=== PATIENT | female | born 1950 | race Caucasian/White ===

== ENCOUNTER → 2016-11-05 | Outpatient (CLI) | payer OTHER ==
[2016-11-05 09:53] LABS: CREATININE 1.52 mg/dL (0.55-1.02)
== END ==
LOC: RAD 09:02
PROVIDERS: ATTEND Optometrist
DX: H47.10 Unspecified papilledema (principal)
CPT/HCPCS: 36415; 70551; 82565; 84520

== ENCOUNTER → 2017-06-21 | Outpatient (CLI) | payer OTHER ==
--- NOTE | 2017-06-21 10:33 | CT ---
History: Passed out last weekend, syncope 2 days ago Study: CT head without contrast. Sagittal and coronal reformations were provided. Comparison: MR brain dated November 05, 2016 Findings: The ventricles and sulci are normal in size and configuration. There is mild periventricula r white matter low attenuation. There is no intracranial hemorrhage or mass or edema. There is mucosa l thickening in the right maxillary sinus with an air-fluid level. The calvarium is intact. Impression: 1. No acute intracranial disease demonstrated. 2. Right maxillary sinusitis Reported By:
== END | disposition home or self-care (01) | DRG 312 ==
LOC: RAD 10:12
PROVIDERS: ATTEND Internal Medicine
DX: R55 Syncope and collapse (principal); J32.0 Chronic maxillary sinusitis
CPT/HCPCS: 70450

== ENCOUNTER → 2017-07-11 | Outpatient (CLI) | payer OTHER ==
--- NOTE | 2017-07-11 11:33 | VAS ---
HISTORY: Syncope, dizziness Study: Carotid ultrasound Comparison: None Technique: Multiple luke scale and color flow Doppler images of the right and left carotid arterial s ystem were obtained. The vertebral arterial system was evaluated as well. Findings: The peak systolic velocity of the right ICA is 96 cm/sec. The peak systolic velocity of the left ICA is 107 cm/sec. The ICA/CCA ratio on the right is 1.5. The ICA/CCA ratio on the left is 1.2. Bilatera l antegrade vertebral flow was noted. IMPRESSION: 1. No hemodynamically significant stenosis is appreciated. Reported By:
== END ==
LOC: RAD 10:17
PROVIDERS: ATTEND Internal Medicine Cardiovascular Disease
DX: R55 Syncope and collapse (principal)
CPT/HCPCS: 93880

== ENCOUNTER 2018-05-27 08:05 | Inpatient (IN) ==
--- NOTE | 2018-05-27 08:32 | CT ---
HISTORY: Altered mental status Study: CT head without contrast Comparison: 06/21/2017 Technique: Axial noncontrast images with coronal and sagittal reformats. Dose reduction procedures were used with mA/kv adjusted for body size. Findings: The ventricles are normal in size, shape, and position. There is slight decreased attenuation in the periventricular white matter suggestive of small vessel vascular disease perhaps slightly more prominent than on the prior examination. There is no evidence for recent or remote CVA, hemorrhage, mass lesion, or extra-axial fluid collection. There is complete opacification of the right maxillary sinus likely due to sinusitis. There is a left maxillary sinus retention cyst present. IMPRESSION: No acute intracranial abnormality Small vessel vascular disease which appears progressive when compared with the prior examination Complete opacification of the right maxillary sinus likely due to sinusitis Left maxillary sinus retention cyst Reported By:
--- NOTE | 2018-05-27 08:43 | DR.AMS ---
HPI Time Seen Time Seen by Provider: 05/27/18 08:43 PCP Primary Care Physician: DAMASO HPI Comment HPI Comment: AGREE WITH CHIEF COMPLAINT. Complaint Cheif Complaint Doctors Comments: AMS, BLANK STARE THIS AM AROUND 07:00AM WHEN PATIENT WOKE UP. Chief Complaint:: PT'S FAMILT C/O PT IS HAVING SEVERE AMS. PT'S SON STATES LAST NIGHT AT [facility]PPER SHE REPEATEDLY TOLD HIM THE SAME THING LAST NIGHT. WHEN HE WENT TO CHECK ON HER THIS MORNING SHE HAS BEEN ALTERED AND WITH NO ORIENTATION AND DID NOT KNOW WHO HE WAS. PT IS UNABLE TO ANSWER ANY QUESTIONS AND GIVES A BLANK STARE WHEN QUESTIONS ASKED. PT IS UNABLE TO FOLLOW COMMANDS. Reviewed Nurses Notes Reviewed: Yes Source History Provided: Patient, Family Member and EMS Mode of Arrival Mode of Arrival: EMS Timing Onset of Chief Complaint: 05/27/18 Came On: Suddenly Symptoms: Improving Symptom Onset: Unknown Duration Duration: Constant Duration: Hours Quality Quality: Confusion Severity Severity: Moderate Context Recent: None History Of: None Associated Signs and Symptoms Associated Signs and Symptoms: Generalized Weakness PMH PMH Past Medical History: Yes Past Medical History: Arthritis, Diabetes, GERD, Gout and Hypertension Past Medical History Comment: NEUROPATHY Past Surgical History: Yes Surgical History: Joint Replacement and Other Past Surgical History Comment: BILAT KNEE, CATARACTS, RIGHT EAR SURGERY (1 MONTH AGO) Family History History of Family Medical Conditions: No Social History Does any household member use tobacco: No Alcohol Use: None Do you use any recreational Drugs:: No Lives With: Family Lives Where: Home infectious screening In the last 2 months have you had wt loss of >10#?: MASON Have you had fever, night sweats or hemotysis?: MASON Have you traveled outside the country in the last 6 months?: No Isolation: Standard ROS Review of Systems Constitutional: Other (AMS.) ENTM: No Symptoms Reported Respiratoy: No Symptoms Reported Cardiovascular: No Symptoms Reported Gastrointestinal/Abdominal: No Symptoms Reported Genitourinary: No Symptoms Reported Neurological: Speech Problem Musculoskeletal: No Symptoms Reported Integumentary: No Symptoms Reported Hematologic/Lymphatic: No Symptoms Reported Endocrine: No Symptoms Reported Psychiatric: No Symptoms Reported All Other Systems: Reviewed and Negative Unable to Obtain Due To: Altered mental status PE Vitals Vital Signs: Temp Pulse Pulse Pulse Resp BP BP 05/29/18 04:54 16 04/11/19 04:00 98.3 F 73 20 144/64 05/29/18 03:54 16 05/29/18 00:00 99.6 F 71 18 132/63 05/28/18 20:00 98.0 F 63 20 144/64 05/28/18 19:30 82 05/28/18 19:28 18 05/28/18 18:28 18 05/28/18 16:00 98.9 F 77 20 116/56 05/28/18 12:00 100.4 F H 86 18 139/56 05/28/18 10:50 100.9 F H 05/28/18 10:40 20 05/28/18 09:40 20 05/28/18 08:00 101.2 F H 71 18 158/67 05/28/18 06:46 18 05/28/18 05:46 17 05/28/18 04:00 98.6 F 63 20 139/63 05/28/18 00:00 99.6 F 76 20 114/54 05/27/18 20:00 97.7 F 72 20 143/65 05/27/18 16:00 98.6 F 78 18 124/60 05/27/18 13:18 16 05/27/18 13:00 98.4 F 78 16 146/66 05/27/18 12:50 83 14 124/55 05/27/18 12:48 16 05/27/18 11:32 84 16 156/66 05/27/18 11:00 89 18 191/79 05/27/18 10:00 90 19 187/77 05/27/18 09:54 86 22 213/85 05/27/18 09:00 79 22 175/73 05/27/18 08:34 85 20 184/76 05/27/18 08:06 86 18 184/79 Pulse Ox 05/29/18 04:54 05/29/18 04:00 94 L 05/29/18 03:54 05/29/18 00:00 94 L 05/28/18 20:00 96 05/28/18 19:30 96 05/28/18 19:28 05/28/18 18:28 05/28/18 16:00 96 05/28/18 12:00 98 05/28/18 10:50 05/28/18 10:40 05/28/18 09:40 05/28/18 08:00 97 05/28/18 06:46 05/28/18 05:46 05/28/18 04:00 98 05/28/18 00:00 92 L 05/27/18 20:00 98 05/27/18 16:00 95 05/27/18 13:18 05/27/18 13:00 96 05/27/18 12:50 98 05/27/18 12:48 05/27/18 11:32 100 05/27/18 11:00 100 05/27/18 10:00 100 05/27/18 09:54 97 05/27/18 09:00 100 05/27/18 08:34 100 05/27/18 08:06 97 General Limitations: Altered Mental Status General Appearance: Alert and In No Apparent Distress Head Head Exam: Normal Inspection Head Exam Physical: Other (NONE REPORTED.) Eyes Eye exam: Normal Appearance Pupils: Regular, Round: Bilateral and Reactive: Bilateral ENT ENT Exam: Normal External Ear Exam External Ear Exam: Normal External Inspection TM/Canal Exam: Bilateral: Normal Nose Exam: Normal Nose Exam Mouth Exam: Normal Inspection Throat Exam: Normal Inspection Neck Neck Exam: Normal Inspection, Full ROM and Trachea Midline; negative Tenderness, Meningismus and Lymphadenopathy Chest Chest Inspection: Normal Inspection and Symmetric Chest Wall Rise Respiratory Respiratory Exam: Normal Lung Sounds Bilat Respiratory Exam: Bilateral: Clear to Auscultation Cardiovascular Cardiovascular Exam: Regular Rate and Normal Rhythm Abdominal Exam Abdominal Exam: Normal Inspection Extremities Extremities Exam: Normal Inspection Back Back Exam: Normal Inspection Neurological Neurological Exam: Alert, CN II-XII Intact and Reflexes Normal Patient Oriented To: Person and Place Speech: Other (SPEECH SLOW.) Cranial Nerve Exam: EOM Function (II, III, IV, ): Normal, Gag reflex (XI): Normal and Tongue Deviation: Normal Motor Strength - LUE: 5/5 Motor Strength - RUE: 5/5 Motor Strength - LLE: 5/5 Motor Strength - RLE: 5/5 Upper Motor Neuron Exam: Babinski Sign: Normal DTR: brachioradialis (L): 2+ and brachioradialis (R): 2+ Psychological Psychiatric Exam: Anxious Skin Skin Exam: Intact MDM Additional Information Obtained Additional Information Obtained From: Family Differential Diagnosis Metabolic: Hypercalcemia, Hypernatremia, Hypoglycemia and Hyponatremia Structural: CVA and Mass Lesion Infectious: Sepsis and UTI COURSE Treatment Treatment: PATIENT SPONTANOUSLY BECAME ORIENTED WHILE IN ED. Consultation Consultation Comments: DR. GONZÁLES WILL ADMIT PATIENT. Education/Counseling Education/Counseling: Patient and Family Educated On: Diagnosis ROR Labs Reviewed Laboratory Results Reviewed?: Yes Result Diagrams: 05/29/18 05:36 05/29/18 05:36 Laboratory: WBC 7.6 X10^3/uL (3.6-10.0) 05/29/18 05:36 RBC 2.89 X10^6/uL (3.5-5.4) L 05/29/18 05:36 Hgb 9.2 g/dL (12.0-16.0) L 05/29/18 05:36 Hct 27.0 % (36.0-47.0) L 05/29/18 05:36 MCV 93.2 fL (80.0-100.0) 05/29/18 05:36 MCH 31.8 pg (27.0-34.0) 05/29/18 05:36 MCHC 34.2 g/dL (33.0-35.0) 05/29/18 05:36 RDW 15.7 % (11.6-16.5) 05/29/18 05:36 Plt Count 106 X10^3/uL (150.0-450.0) L 05/29/18 05:36 MPV 8.9 fL (7.4-11.0) 05/29/18 05:36 Neut % (Auto) 53.8 % (42.0-75.0) 05/29/18 05:36 Lymph % (Auto) 34.9 % (21.0-51.0) 05/29/18 05:36 [place] % (Auto) 7.3 % (0.0-13.0) 05/29/18 05:36 Eos % (Auto) 3.1 % (0.9-2.9) H 05/29/18 05:36 Baso % (Auto) 0.9 % (0.2-1.0) 05/29/18 05:36 Neut # (Auto) 4.1 x10^3/uL (2.2-4.8) 05/29/18 05:36 Lymph # (Auto) 2.7 X10^3/uL (1.3-2.9) 05/29/18 05:36 [place] # (Auto) 0.6 x10^3/uL (0.3-0.8) 05/29/18 05:36 Eos # (Auto) 0.2 x10^3/uL (0.0-0.2) 05/29/18 05:36 Baso # (Auto) 0.1 X10^3/uL (0.0-0.1) 05/29/18 05:36 Absolute Nucleated RBC 0.0 /100WBC 05/29/18 05:36 ESR 68 MM/HOUR (0-20) H 05/28/18 13:00 INR Target Range - 05/27/18 08:35 INR 1.06 (0.8-1.3) 05/27/18 08:35 APTT 31.4 SECONDS (22.9-36.5) 05/27/18 08:35 PTT Comment - 05/27/18 08:35 Sodium 137 mmol/L (136-145) 05/29/18 05:36 Corrected Sodium TNP 05/29/18 05:36 Potassium 4.1 mmol/L (3.5-5.1) 05/29/18 05:36 Chloride 105 mmol/L (98-107) 05/29/18 05:36 Carbon Dioxide 24.5 mmol/L (21-32) 05/29/18 05:36 BUN 32 mg/dL (7-18) H 05/29/18 05:36 Creatinine 2.10 mg/dL (0.55-1.02) H 05/29/18 05:36 Est GFR (MDRD) Af Amer 30 (>60) L 05/29/18 05:36 Est GFR (MDRD) Non-Af 25 (>60) L 05/29/18 05:36 Glucose 72 mg/dL (65-99) 05/29/18 05:36 POC Glucose (mg/dL) 109 mg/dL (65-99) H 05/29/18 06:29 Lactic Acid 1.4 mmol/L (0.4-2.0) 05/27/18 08:35 Calcium 8.1 mg/dL (8.5-10.1) L 05/29/18 05:36 Corrected Calcium 9.4 mg/dL (8.5-10.1) 05/29/18 05:36 Total Bilirubin 0.20 mg/dL (0.2-1.0) 05/29/18 05:36 AST 28 Units/L (15-37) 05/29/18 05:36 ALT 19 Units/L (12-78) 05/29/18 05:36 Alkaline Phosphatase 79 Units/L (46-116) 05/29/18 05:36 Ammonia 26 umol/L (11-32) 05/28/18 09:47 Creatine Kinase 273 Units/L (26-192) H 05/28/18 00:45 CK-MB (CK-2) 7.9 ng/mL (0-4.0) H* 05/28/18 00:45 CK/CKMB % Calc 2.9 % (<4) 05/28/18 00:45 Troponin I 0.03 ng/mL (0-1.5) 05/28/18 00:45 C-Reactive Protein 9.00 mg/L (0-3.0) H 05/28/18 13:00 Total Protein 5.9 g/dL (6.4-8.2) L 05/29/18 05:36 Albumin 2.4 g/dL (3.4-5.0) L 05/29/18 05:36 Globulin 3.5 g/dL (2.5-4.5) 05/29/18 05:36 Albumin/Globulin Ratio 0.7 Ratio (1.1-2.1) L 05/29/18 05:36 Triglycerides 164 mg/dL (0-150) H 05/28/18 05:29 Cholesterol 92 mg/dL (0-200) 05/28/18 05:29 LDL Cholesterol, Calc 32 mg/dL (0-100) 05/28/18 05:29 HDL Cholesterol 27 mg/dL (40-60) L 05/28/18 05:29 Cholesterol/HDL Ratio 3.4 (0.0-5.0) 05/28/18 05:29 Specimen Type Catherized urine 05/27/18 10:56 Urine Color Yellow (YELLOW) 05/27/18 10:56 Urine Appearance Slightly hazy (CLEAR) 05/27/18 10:56 Urine pH 6.0 (5.0 - 8.0) 05/27/18 10:56 Ur Specific [place] 1.020 (1.000-1.030) 05/27/18 10:56 Urine Protein 4+ (NEGATIVE) 05/27/18 10:56 Urine Glucose (UA) 2+ (NEGATIVE) 05/27/18 10:56 Urine Ketones 1+ (NEGATIVE) 05/27/18 10:56 Urine Occult Blood 4+ (NEGATIVE) 05/27/18 10:56 Urine Nitrite Negative (NEGATIVE) 05/27/18 10:56 Urine Bilirubin Negative (NEGATIVE) 05/27/18 10:56 Urine Urobilinogen Normal (NORMAL) 05/27/18 10:56 Ur Leukocyte Esterase Negative (NEGATIVE) 05/27/18 10:56 Urine RBC 3-5 /HPF (NONE SEEN) 05/27/18 10:56 Urine WBC 0-2 /HPF (NONE SEEN) 05/27/18 10:56 Ur Squamous Epith Cells Few /HPF (NEGATIVE) 05/27/18 10:56 Urine Bacteria Trace /HPF (NEGATIVE) 05/27/18 10:56 Ur Culture Indicated? No/not indicated 05/27/18 10:56 Influenza Type A (PCR) Negative (NEGATIVE) 05/28/18 13:40 Influenza Type B (PCR) Negative (NEGATIVE) 05/28/18 13:40 Other Results Comments: DR. MAY WILL ADMIT PATIENT. XRAY XRAY Findings: REPORT ON RECORD NOTED AND DISCUSS WITH PATIENT. EKG Rate: 61 [place]: Normal Rhythm: NSR Block: None Hypertrophy: None ST: Normal Instructions Instructions: Type 2 Diabetes Mellitus, Diagnosis, Adult Personal Hygiene Vertigo, [id number] Confusion Diabetes Mellitus and Sick Day Management Sinusitis, Adult, Itak-op-Ecya Hand Washing, [id number] Type 2 Diabetes Mellitus, Self Care, Adult, Yojh-ud-[id number] Hypertension, [id number]-[id number] Dizziness, [id number] Forms: Patient Portal
[2018-05-27 09:00] LABS: BASOPHILS # (AUTO) 0.1 X10^3/uL (0.0-0.1); EOSINOPHILS # (AUTO) 0.3 x10^3/uL (0.0-0.2); EOSINOPHILS % (AUTO) 3.5 % (0.9-2.9); HEMATOCRIT 34.5 % (36.0-47.0); HEMOGLOBIN 11.5 g/dL (12.0-16.0); LYMPHOCYTES # (AUTO) 3.1 X10^3/uL (1.3-2.9); MEAN CORPUSCULAR HEMOGLOBIN 31.2 pg (27.0-34.0); MEAN CORPUSCULAR HGB CONC 33.5 g/dL (33.0-35.0); MEAN CORPUSCULAR VOLUME 93.2 fL (80.0-100.0); MEAN PLATELET VOLUME 8.3 fL (7.4-11.0); MONOCYTES # (AUTO) 0.6 x10^3/uL (0.3-0.8); MONOCYTES % (AUTO) 6.3 % (0.0-13.0); NEUTROPHILS # (AUTO) 5.5 x10^3/uL (2.2-4.8); NEUTROPHILS % (AUTO) 57.2 % (42.0-75.0); PLATELET COUNT 137 X10^3/uL (150.0-450.0); RED CELL DISTRIBUTION WIDTH 15.8 % (11.6-16.5); WHITE BLOOD COUNT 9.6 X10^3/uL (3.6-10.0)
[2018-05-27 09:09] LABS: ALBUMIN 3.1 g/dL (3.4-5.0); CALCIUM 9.3 mg/dL (8.5-10.1); CREATININE 2.07 mg/dL (0.55-1.02); TOTAL PROTEIN 7.1 g/dL (6.4-8.2)
[2018-05-27] MEDS ORDERED: ZOFRAN INJ 4 MG VIAL IVP ONE (09:12)
[2018-05-27] MEDS ORDERED: ZOFRAN INJ 4 MG VIAL ONE (09:13)
[2018-05-27 09:24] LABS: LACTIC ACID 1.4 mmol/L (0.4-2.0)
--- NOTE | 2018-05-27 09:28 | RAD ---
HISTORY: Severe at AMS. Prior history of diabetes and hypertension. Study: Single-view chest Comparison: 01/26/2010. Findings: Trachea is midline. There is cardiomegaly. There is a upper mediastinum appears widened which may be on the basis of vascular ectasia or adenopathy. This may be influenced by AP positioning. No evidence of infiltrate, CHF, pleural fluid or pneumothorax is seen. There is multilevel thoracic spondylosis. IMPRESSION: Widened appearing upper mediastinum. Although this may be on the basis of AP positioning, vascular ectasia or adenopathy is not excluded. CT scanning of the chest with IV contrast may be of benefit. Reported By:
[2018-05-27] MEDS: NS 1000 ML 1,000 ML IV SCH ×2 (09:35→23:16)
[2018-05-27 09:49] LABS: TROPONIN I 0.02 ng/mL (0-1.5)
[2018-05-27] MEDS ORDERED: CATAPRES TAB 0.2 MG PO ONE (10:10)
[2018-05-27 10:29] LABS: CKMB % 4.1 % (<4); CREATINE KINASE MB 15.2 ng/mL (0-4.0)
[2018-05-27] MEDS ORDERED: CATAPRES TAB 0.2 MG ONE (10:36)
[2018-05-27 11:52] LABS: BILIRUBIN,URINE NEGATIVE (NEGATIVE); BLOOD/HEMOGLOBIN,URINE 4+ (NEGATIVE); GLUCOSE, URINE 2+ (NEGATIVE); KETONES,URINE 1+ (NEGATIVE); LEUKOCYTE ESTERASE ,URINE NEGATIVE (NEGATIVE); NITRITES,URINE NEGATIVE (NEGATIVE); PROTEIN,URINE 4+ (NEGATIVE); UROBILINOGEN,URINE NORMAL (NORMAL)
[2018-05-27] MEDS ORDERED: MORPHINE SULFATE INJ 4 MG IVP ONE (12:02)
[2018-05-27 12:05] LABS: APPEARANCE,URINE SLIGHTLY HAZY (CLEAR); COLOR,URINE YELLOW (YELLOW)
[2018-05-27 12:06] LABS: BACTERIA,URINE TRACE /HPF (NEGATIVE); SQUAMOUS EPITHELIAL CELL,UR FEW /HPF (NEGATIVE)
[2018-05-27] MEDS ORDERED: MORPHINE SULFATE INJ 4 MG ONE (12:39)
[2018-05-27 13:10] LABS: CKMB % 3.6 % (<4); TROPONIN I 0.02 ng/mL (0-1.5)
[2018-05-27 13:18] LABS: CREATINE KINASE MB 10.5 ng/mL (0-4.0)
--- NOTE | 2018-05-27 13:23 | CT ---
HISTORY: Nonspecific widening of the mediastinum on chest x-ray. Study: CT chest without contrast Comparison: Chest x-ray dated same day. Technique: Multiple axial images of the chest were obtained from the thoracic inlet to the upper abdomen without the administration of IV contrast. MIP images were obtained. Dose reduction techniques including Automated Exposure Control (AEC) and adjustment of mA and kV were utilized. Study limited secondary to lack of IV contrast. Findings: The mediastinum does not demonstrate significant pathological lymphadenopathy. There is no paracardial effusion observed. The thoracic aorta is normal in its contour without evidence for aneurysmal dilatation. Cardiomegaly. Moderate calcifications of the thoracic aorta and coronary arteries. Calcifications of the mitral valve is also seen. Mild centrilobular and paraseptal emphysematous changes. No suspicious pulmonary nodules, mass, pleural effusion, focal consolidation, or pneumothorax. Bibasilar scarring versus atelectasis. Small hiatal hernia. The gallbladder is surgically absent. Remaining upper abdominal structures are unremarkable. Degenerative changes of the spine. No aggressive osseous lesions. IMPRESSION: 1. No CT evidence of acute thoracic pathology. 2. Other chronic findings as above. Reported By:
[2018-05-27] MEDS ORDERED: ANTIVERT TAB 25 MG PO PRN (13:59)
[2018-05-27] MEDS ORDERED: VALIUM PO ONE (14:02)
[2018-05-27] MEDS: ZITHROMAX INJ 500 MG VIAL 500 MG in NS 250 ML IV 250 ML IV SCH (14:14)
[2018-05-27 14:37] VITALS: BMI 43.4
[2018-05-27 18:37] LABS: CKMB % 3.5 % (<4); CREATINE KINASE 302 Units/L (26-192); TROPONIN I < 0.02 ng/mL (0-1.5)
[2018-05-27 18:42] LABS: CREATINE KINASE MB 10.7 ng/mL (0-4.0)
[2018-05-27] MEDS: ROCEPHIN VIAL 1 GRAM IVP SCH (19:50)
[2018-05-27] MEDS: AMARYL TAB 4 MG PO SCH (20:35)
[2018-05-27] MEDS: NEURONTIN CAP 300 MG PO SCH (20:35)
[2018-05-27] MEDS: PriLOSEC PO SCH (20:36)
[2018-05-27] MEDS: LIPITOR TAB 10 MG PO SCH (20:36)
[2018-05-27] MEDS ORDERED: TRICOR TAB 160 MG PO SCH (21:00)
[2018-05-27] MEDS ORDERED: ZOCOR TAB 20 MG PO SCH (21:00)
--- NOTE | 2018-05-27 21:01 | VAS ---
HISTORY: TIA stroke Study: Color-flow duplex Doppler studies were performed of the neck vessels. Comparison: None Technique: Multiple luke scale and color flow Doppler images of the right and left carotid arterial system were obtained. The vertebral arterial system was evaluated as well. Findings: There is mild intimal thickening and mild plaque thickening in the bifurcations extending into both proximal internal carotid arteries. There is no significant increase in the peak velocities on the right. The peak velocity in the proximal left internal carotid artery is 102 centimeters/second. The ICA to CCA ratios are within normal range. There is antegrade flow in the vertebrals. No spectral broadening is seen. IMPRESSION: Mild intimal thickening and mild plaque in both bifurcations causing narrowing in the range of 15-30% which is more prominent on the left with no hemodynamically significant narrowing seen. Reported By:
[2018-05-27] MEDS: NABUMETONE 500 MG PO SCH (22:30)
[2018-05-28 01:35] LABS: CKMB % 2.9 % (<4); TROPONIN I 0.03 ng/mL (0-1.5)
[2018-05-28 01:51] LABS: CREATINE KINASE MB 7.9 ng/mL (0-4.0)
[2018-05-28] MEDS ORDERED: TYLENOL 325 MG TAB PO PRN (03:54)
[2018-05-28] MEDS ORDERED: TYLENOL 325 MG TAB PO ONE ×2 (04:11→09:33)
[2018-05-28] MEDS: NS 1000 ML 1,000 ML IV SCH ×2 (05:16→13:31)
[2018-05-28 05:47] LABS: BASOPHILS # (AUTO) 0.1 X10^3/uL (0.0-0.1); BASOPHILS % (AUTO) 0.9 % (0.2-1.0); EOSINOPHILS # (AUTO) 0.2 x10^3/uL (0.0-0.2); HEMOGLOBIN 10.7 g/dL (12.0-16.0); LYMPHOCYTES # (AUTO) 3.9 X10^3/uL (1.3-2.9); MEAN CORPUSCULAR HEMOGLOBIN 31.5 pg (27.0-34.0); MEAN CORPUSCULAR HGB CONC 33.5 g/dL (33.0-35.0); MEAN CORPUSCULAR VOLUME 94.1 fL (80.0-100.0); MEAN PLATELET VOLUME 8.4 fL (7.4-11.0); MONOCYTES # (AUTO) 0.7 x10^3/uL (0.3-0.8); MONOCYTES % (AUTO) 6.6 % (0.0-13.0); NEUTROPHILS # (AUTO) 5.9 x10^3/uL (2.2-4.8); NEUTROPHILS % (AUTO) 54.5 % (42.0-75.0); PLATELET COUNT 120 X10^3/uL (150.0-450.0); RED CELL DISTRIBUTION WIDTH 16.1 % (11.6-16.5); WHITE BLOOD COUNT 10.9 X10^3/uL (3.6-10.0)
[2018-05-28 06:24] LABS: ALANINE AMINOTRANSFERASE 26 Units/L (12-78); ALBUMIN 2.9 g/dL (3.4-5.0); ALKALINE PHOSPHATASE 92 Units/L (46-116); ASPARTATE AMINO TRANSFERASE 41 Units/L (15-37); BLOOD UREA NITROGEN 32 mg/dL (7-18); CALCIUM 8.6 mg/dL (8.5-10.1); CARBON DIOXIDE 25.5 mmol/L (21-32); CHLORIDE 103 mmol/L (98-107); CHOL/HDL RATIO 3.4 (0.0-5.0); CHOLESTEROL 92 mg/dL (0-200); COR CA(FOR HYPOALB) 9.5 mg/dL (8.5-10.1); CREATININE 2.12 mg/dL (0.55-1.02); HDL CHOLESTEROL 27 mg/dL (40-60); SODIUM 137 mmol/L (136-145); TOTAL PROTEIN 6.8 g/dL (6.4-8.2); TRIGLYCERIDES 164 mg/dL (0-150); eGFR NON BLACK RACES 25 (>60)
[2018-05-28] MEDS ORDERED: HYDROCHLOROTHIAZIDE 12.5 MG CAP PO SCH (09:00)
[2018-05-28] MEDS ORDERED: COZAAR PO SCH (09:00)
[2018-05-28] MEDS: ROCEPHIN VIAL 1 GRAM IVP SCH (09:09)
[2018-05-28] MEDS: ZITHROMAX INJ 500 MG VIAL 500 MG in NS 250 ML IV 250 ML IV SCH (09:09)
[2018-05-28] MEDS: AMARYL TAB 4 MG PO SCH ×2 (09:09→20:22)
[2018-05-28] MEDS: ZYLOPRIM PO SCH (09:09)
[2018-05-28] MEDS: MICRO K EXTEN CAP 10 MEQ PO SCH (09:09)
[2018-05-28] MEDS: COZAAR PO SCH (09:10)
[2018-05-28] MEDS: PriLOSEC PO SCH ×2 (09:10→20:22)
[2018-05-28] MEDS: CLARITIN PO SCH (09:10)
[2018-05-28] MEDS: NABUMETONE 500 MG PO SCH (09:10)
[2018-05-28] MEDS: OSCAL+D or CALTRATE+D PO SCH (09:10)
[2018-05-28] MEDS: TYLENOL 325 MG TAB PO PRN ×2 (09:40→18:28)
--- NOTE | 2018-05-28 12:04 | CT ---
HISTORY: TIA, dizziness Study: CT brain without contrast Comparison: June 21, 2017 Technique: Multiple axial images of the brain were obtained from the skull base to the vertex without administration of IV contrast. Dose reduction techniques including automated exposure control (AEC) and adjustment of mA and kV were utilized. Findings: No acute intraparenchymal hemorrhage or mass can be identified. No extra-axial fluid collections are seen. No alteration in the attenuation of the brain parenchyma can be identified to suggest acute or subacute ischemic change. The ventricles, sulci, and cisterns demonstrate an appearance consistent with a mild degree of generalized atrophy. Patchy areas of decreased attenuation within the periventricular, subcortical, and subinsular white matter suggest changes of chronic small vessel ischemic disease. Partial opacification and mild mucosal thickening of the ethmoid air cells is noted. Images demonstrate complete opacification of the right maxillary sinus. A rounded soft tissue density within the left maxillary sinus suggests a retention cyst/mucosal polyp. If symptoms or clinical concern persist recommend continued follow-up for further evaluation. IMPRESSION: No acute intracranial process can be identified. Mild generalized atrophy with findings consistent with changes of chronic small vessel ischemic disease. Ethmoid and maxillary sinus disease as noted above. Reported By:
[2018-05-28] MEDS ORDERED: LEVAQUIN PREMIX IV 500 MG 500 MG/100 ML BAG IV ONE (12:52)
[2018-05-28] MEDS ORDERED: LOVENOX INJ 40 MG SYR SC SCH (16:00)
[2018-05-28] MEDS ORDERED: LOVENOX INJ 30 MG SYR SC ONE (16:00)
[2018-05-28] MEDS: LOVENOX INJ 30 MG SYR SC SCH (16:01)
--- NOTE | 2018-05-28 17:48 | DR.H&P ---
H&P - History & Physical for Day of: H&P Date: 05/27/18 - Chief Complaint Chief Complaint: AMS - History of Present Illness History of Present Illness: 67 WF ER ADMISSION AFTER PRESENTING WITH CO PT'S FAMILY C/O PT IS HAVING SEVERE AMS. PT'S SON STATES LAST NIGHT AT [facility] SHE REPEATEDLY TOLD HIM THE SAME THING LAST NIGHT. WHEN HE WENT TO CHECK ON HER THIS MORNING SHE HAS BEEN ALTERED AND WITH NO ORIENTATION AND DID NOT KNOW WHO HE WAS. PT IS UNABLE TO ANSWER ANY QUESTIONS AND GIVES A BLANK STARE WHEN QUESTIONS ASKED. PT IS UNABLE TO FOLLOW COMMANDS. PT HAS PMH OF DM, HTN, OA, RECENT BOUT OF REOCCURRING OM WITH TM TUBE PLACEMENT. CT HEAD IN ER W/O ACUTE FINDINGS. - Past Medical History Past Medical History: Hypertension, Diabetes, GERD, Arthritis, Gout - Past Surgical History Surgical History: Joint Replacement, Other - Social History Does patient currently use any type of tobacco product: No Have you used tobacco products in the last 12 months: No Type of Tobacco Use: None Does any household member use tobacco: No Alcohol Use: None Drug Use: None - Medications Home Medications: Penicillins Allergy (Verified 05/27/18 08:15) CONTINUE taking the following medications allopurinol 300 mg PO DAILY 05/27/18 [History] atorvastatin 10 mg PO HS 05/27/18 [History] calcium carbonate-vitamin D3 [Caltrate with Vitamin D3] 1 tab PO QDAY 05/27/18 [History] fenofibrate 160 mg PO HS 05/27/18 [History] gabapentin 300 mg PO HS 05/27/18 [History] glimepiride 4 mg PO BID 05/27/18 [History] loratadine 10 mg PO DAILY 05/27/18 [History] losartan-hydrochlorothiazide 1 tab PO HS 05/27/18 [History] meclizine 25 mg PO Q8H PRN 05/27/18 [History] nabumetone 500 mg PO BID 05/27/18 [History] omeprazole 20 mg PO BID 05/27/18 [History] potassium chloride 10 mg PO DAILY 05/27/18 [History] simvastatin 20 mg PO HS 05/27/18 [History] - Review of Systems Constitutional: Weakness Eyes: No Symptoms Reported ENT: No Symptoms Reported Respiratory: SOB with Excertion Cardiovascular: Edema Gastrointestinal: Nausea Genitourinary: No Symptoms Reported Musculoskeletal: Back Pain Skin: No Symptoms Reported Neurological: Weakness, Confusion - Physical Exam Vital Signs: Temperature 98.9 F Pulse Rate [Right Brachial] 77 Pulse Rate [Apical] 83 Pulse Rate 86 Respiratory Rate 20 Blood Pressure [Right Arm] 116/56 Blood Pressure 184/79 O2 Sat by Pulse Oximetry 96 Oriented: Person Eyes: Blurred Vision Ear: Normal Nose: Normal Throat: Normal Respiratory: RLL Diminished, LLL Diminished Cardiovascular: Normal, Edema : Normal Auscultation: Bowel Sounds: Normal Palpation: Normal Tenderness: Normal Skin: Normal Musculoskeletal: Back:Thoracic (BILATERAL CVA TENDERNESS) Psychiatric: Anxiety Affect: Anxious Speech Pattern: Clear. negative: Delayed - Assessment/Plan (1) Altered mental status Status: Acute Plan: ADMIT, SERIAL CE, EKG. CT HEAD ON ADMISSION, CAROTID ARTERY US. IV HYDRATION, BLOOD CULTURES, URINE CULTURES. IV ATBX THERAPY, VERIFY HOME MEDICATION. CONTINUOUS CARDIAC MONITORING, RESP CONSULT, LACTIC ACID. BP AND BS CONTROL (2) Hypertension Status: Acute (3) Diabetes Status: Acute (4) Acute maxillary sinusitis Status: Acute (5) Acute renal failure Status: Acute - Allergies Allergies/Adverse Reactions: Allergies Allergy/AdvReac Type Severity Reaction Status Date / Time Penicillins Allergy Verified 05/27/18 08:15
--- NOTE | 2018-05-28 18:00 | PCM.PROG ---
Progress Note - Progress Note for Day of Date of Exam: 05/28/18 - Subjective Subjective: 67 WF ER ADMISSION ONE DAY AGO WITH AMS. PT HAD CT HEAD ON ADMISSION WITH ACUTE SINUSITIS, NO ACUTE CVA. PT HAD ACUTE RENAL INSUFFICIENCY. PT HAD BLOOD CULTURES COLLECTED ON ADMISSION. PT IS ON ROCEPHIN AND ZITHROMAX IV. PT IS SEVERELY CLAUSTROPHOBIC AND COULD NOT TOLERATE MRI BRAIN EVEN WITH VALIUM. REPEAT CT HEAD ORDERED THIS AM. PT WILL AWAKEN, BUT APPEARS SLEEPY OR SEDATION, SHE IS ORIENTED X 3 THIS AM. PT CO BILATERAL FLANK TENDERNESS AND RESOLVED GARCIA. WE ADDED CRP AND SED RATE AND IV LEVAQUIN. - Past Medical Family Social History Past Med/Fam/Surg Hx: No changes since H&P Allergies: Allergies Penicillins Allergy (Verified 05/27/18 08:15) - Review of Systems ROS: No change since H&P - Vital Signs and I&O's Vital Signs: Temperature 98.9 F Pulse Rate [Right Brachial] 77 Pulse Rate [Apical] 83 Pulse Rate 86 Respiratory Rate 20 Blood Pressure [Right Arm] 116/56 Blood Pressure 184/79 O2 Sat by Pulse Oximetry 96 Intake and Output: Intake & Output 05/26/18 05/27/18 05/28/18 05/29/18 11:59 11:59 11:59 11:59 Intake Total 1441 / 1441 1154 / 1154 Output Total 200 / 200 300 / 300 Balance 1241 / 1241 854 / 854 - Physical Exam Oriented: Person Eyes: Blurred Vision Ear: Normal Nose: Normal Throat: Normal Respiratory: Diminished Cardiovascular: Normal, Edema : Normal Auscultation: Bowel Sounds: Normal Tenderness: Normal Skin: Normal Musculoskeletal: Back:Thoracic (BILATERAL CVA TENDERNESS) Psychiatric: Anxiety Mood Description: Calm Affect: Anxious Speech Pattern: Clear. negative: Delayed - Laboratory and Diagnostics Result Diagrams: 05/28/18 05:29 05/28/18 05:29 Labs: Laboratory WBC 10.9 X10^3/uL (3.6-10.0) H 05/28/18 05:29 RBC 3.40 X10^6/uL (3.5-5.4) L 05/28/18 05:29 Hgb 10.7 g/dL (12.0-16.0) L 05/28/18 05:29 Hct 32.0 % (36.0-47.0) L 05/28/18 05:29 MCV 94.1 fL (80.0-100.0) 05/28/18 05:29 MCH 31.5 pg (27.0-34.0) 05/28/18 05:29 MCHC 33.5 g/dL (33.0-35.0) 05/28/18 05:29 RDW 16.1 % (11.6-16.5) 05/28/18 05:29 Plt Count 120 X10^3/uL (150.0-450.0) L 05/28/18 05:29 MPV 8.4 fL (7.4-11.0) 05/28/18 05:29 Neut % (Auto) 54.5 % (42.0-75.0) 05/28/18 05:29 Lymph % (Auto) 36.0 % (21.0-51.0) 05/28/18 05:29 [place] % (Auto) 6.6 % (0.0-13.0) 05/28/18 05:29 Eos % (Auto) 2.0 % (0.9-2.9) 05/28/18 05:29 Baso % (Auto) 0.9 % (0.2-1.0) 05/28/18 05:29 Neut # (Auto) 5.9 x10^3/uL (2.2-4.8) H 05/28/18 05:29 Lymph # (Auto) 3.9 X10^3/uL (1.3-2.9) H 05/28/18 05:29 [place] # (Auto) 0.7 x10^3/uL (0.3-0.8) 05/28/18 05:29 Eos # (Auto) 0.2 x10^3/uL (0.0-0.2) 05/28/18 05:29 Baso # (Auto) 0.1 X10^3/uL (0.0-0.1) 05/28/18 05:29 Absolute Nucleated RBC 0.0 /100WBC 05/28/18 05:29 ESR 68 MM/HOUR (0-20) H 05/28/18 13:00 INR Target Range - 05/27/18 08:35 INR 1.06 (0.8-1.3) 05/27/18 08:35 APTT 31.4 SECONDS (22.9-36.5) 05/27/18 08:35 PTT Comment - 05/27/18 08:35 Sodium 137 mmol/L (136-145) 05/28/18 05:29 Corrected Sodium TNP 05/28/18 05:29 Potassium 4.7 mmol/L (3.5-5.1) 05/28/18 05:29 Chloride 103 mmol/L (98-107) 05/28/18 05:29 Carbon Dioxide 25.5 mmol/L (21-32) 05/28/18 05:29 BUN 32 mg/dL (7-18) H 05/28/18 05:29 Creatinine 2.12 mg/dL (0.55-1.02) H 05/28/18 05:29 Est GFR (MDRD) Af Amer 30 (>60) L 05/28/18 05:29 Est GFR (MDRD) Non-Af 25 (>60) L 05/28/18 05:29 Glucose 84 mg/dL (65-99) 05/28/18 05:29 POC Glucose (mg/dL) 143 mg/dL (65-99) H 05/28/18 15:43 Lactic Acid 1.4 mmol/L (0.4-2.0) 05/27/18 08:35 Calcium 8.6 mg/dL (8.5-10.1) 05/28/18 05:29 Corrected Calcium 9.5 mg/dL (8.5-10.1) 05/28/18 05:29 Total Bilirubin 0.30 mg/dL (0.2-1.0) 05/28/18 05:29 AST 41 Units/L (15-37) H 05/28/18 05:29 ALT 26 Units/L (12-78) 05/28/18 05:29 Alkaline Phosphatase 92 Units/L (46-116) 05/28/18 05:29 Ammonia 26 umol/L (11-32) 05/28/18 09:47 Creatine Kinase 273 Units/L (26-192) H 05/28/18 00:45 CK-MB (CK-2) 7.9 ng/mL (0-4.0) H* 05/28/18 00:45 CK/CKMB % Calc 2.9 % (<4) 05/28/18 00:45 Troponin I 0.03 ng/mL (0-1.5) 05/28/18 00:45 C-Reactive Protein 9.00 mg/L (0-3.0) H 05/28/18 13:00 Total Protein 6.8 g/dL (6.4-8.2) 05/28/18 05:29 Albumin 2.9 g/dL (3.4-5.0) L 05/28/18 05:29 Globulin 3.9 g/dL (2.5-4.5) 05/28/18 05:29 Albumin/Globulin Ratio 0.7 Ratio (1.1-2.1) L 05/28/18 05:29 Triglycerides 164 mg/dL (0-150) H 05/28/18 05:29 Cholesterol 92 mg/dL (0-200) 05/28/18 05:29 LDL Cholesterol, Calc 32 mg/dL (0-100) 05/28/18 05:29 HDL Cholesterol 27 mg/dL (40-60) L 05/28/18 05:29 Cholesterol/HDL Ratio 3.4 (0.0-5.0) 05/28/18 05:29 Specimen Type Catherized urine 05/27/18 10:56 Urine Color Yellow (YELLOW) 05/27/18 10:56 Urine Appearance Slightly hazy (CLEAR) 05/27/18 10:56 Urine pH 6.0 (5.0 - 8.0) 05/27/18 10:56 Ur Specific [place] 1.020 (1.000-1.030) 05/27/18 10:56 Urine Protein 4+ (NEGATIVE) 05/27/18 10:56 Urine Glucose (UA) 2+ (NEGATIVE) 05/27/18 10:56 Urine Ketones 1+ (NEGATIVE) 05/27/18 10:56 Urine Occult Blood 4+ (NEGATIVE) 05/27/18 10:56 Urine Nitrite Negative (NEGATIVE) 05/27/18 10:56 Urine Bilirubin Negative (NEGATIVE) 05/27/18 10:56 Urine Urobilinogen Normal (NORMAL) 05/27/18 10:56 Ur Leukocyte Esterase Negative (NEGATIVE) 05/27/18 10:56 Urine RBC 3-5 /HPF (NONE SEEN) 05/27/18 10:56 Urine WBC 0-2 /HPF (NONE SEEN) 05/27/18 10:56 Ur Squamous Epith Cells Few /HPF (NEGATIVE) 05/27/18 10:56 Urine Bacteria Trace /HPF (NEGATIVE) 05/27/18 10:56 Ur Culture Indicated? No/not indicated 05/27/18 10:56 Influenza Type A (PCR) Negative (NEGATIVE) 05/28/18 13:40 Influenza Type B (PCR) Negative (NEGATIVE) 05/28/18 13:40 - Plan (1) Altered mental status Status: Acute Plan: SERIAL CE, EKG COLLECTED ON ADMISSION. CT HEAD ON ADMISSION, CAROTID ARTERY US WITHOUT SIGNIFICANT STENOSIS. IV HYDRATION, BLOOD CULTURES, URINE CULTURES. IV ATBX THERAPY, VERIFY HOME MEDICATION. CONTINUOUS CARDIAC MONITORING, RESP CONSULT, LACTIC ACID. BP AND BS CONTROL (2) Hypertension Status: Acute (3) Diabetes Status: Acute (4) Acute maxillary sinusitis Status: Acute (5) Acute renal failure Status: Acute
[2018-05-28] MEDS: NEURONTIN CAP 300 MG PO SCH (20:22)
[2018-05-28] MEDS: LIPITOR TAB 10 MG PO SCH (20:22)
[2018-05-29] MEDS: NS 1000 ML 1,000 ML IV SCH ×2 (03:50→10:23)
[2018-05-29] MEDS: TYLENOL 325 MG TAB PO PRN ×2 (03:54→10:02)
[2018-05-29] MEDS ORDERED: D50W ABBOJECT SYR IV ONE (05:38)
[2018-05-29] MEDS ORDERED: D50W ABBOJECT SYR ONE (05:44)
[2018-05-29 06:15] LABS: BASOPHILS # (AUTO) 0.1 X10^3/uL (0.0-0.1); BASOPHILS % (AUTO) 0.9 % (0.2-1.0); EOSINOPHILS # (AUTO) 0.2 x10^3/uL (0.0-0.2); EOSINOPHILS % (AUTO) 3.1 % (0.9-2.9); HEMOGLOBIN 9.2 g/dL (12.0-16.0); LYMPHOCYTES # (AUTO) 2.7 X10^3/uL (1.3-2.9); LYMPHOCYTES % (AUTO) 34.9 % (21.0-51.0); MEAN CORPUSCULAR HEMOGLOBIN 31.8 pg (27.0-34.0); MEAN CORPUSCULAR HGB CONC 34.2 g/dL (33.0-35.0); MEAN CORPUSCULAR VOLUME 93.2 fL (80.0-100.0); MEAN PLATELET VOLUME 8.9 fL (7.4-11.0); MONOCYTES # (AUTO) 0.6 x10^3/uL (0.3-0.8); MONOCYTES % (AUTO) 7.3 % (0.0-13.0); NEUTROPHILS # (AUTO) 4.1 x10^3/uL (2.2-4.8); NEUTROPHILS % (AUTO) 53.8 % (42.0-75.0); PLATELET COUNT 106 X10^3/uL (150.0-450.0); RED BLOOD COUNT 2.89 X10^6/uL (3.5-5.4); RED CELL DISTRIBUTION WIDTH 15.7 % (11.6-16.5); WHITE BLOOD COUNT 7.6 X10^3/uL (3.6-10.0)
[2018-05-29 06:34] LABS: ALANINE AMINOTRANSFERASE 19 Units/L (12-78); ALBUMIN 2.4 g/dL (3.4-5.0); ALKALINE PHOSPHATASE 79 Units/L (46-116); ASPARTATE AMINO TRANSFERASE 28 Units/L (15-37); BLOOD UREA NITROGEN 32 mg/dL (7-18); CALCIUM 8.1 mg/dL (8.5-10.1); CARBON DIOXIDE 24.5 mmol/L (21-32); CHLORIDE 105 mmol/L (98-107); COR CA(FOR HYPOALB) 9.4 mg/dL (8.5-10.1); SODIUM 137 mmol/L (136-145); TOTAL PROTEIN 5.9 g/dL (6.4-8.2); eGFR NON BLACK RACES 25 (>60)
[2018-05-29] MEDS: COZAAR PO SCH (10:01)
[2018-05-29] MEDS: CLARITIN PO SCH (10:01)
[2018-05-29] MEDS: AMARYL TAB 4 MG PO SCH ×2 (10:01→20:38)
[2018-05-29] MEDS: OSCAL+D or CALTRATE+D PO SCH (10:01)
[2018-05-29] MEDS: ZYLOPRIM PO SCH (10:01)
[2018-05-29] MEDS: MICRO K EXTEN CAP 10 MEQ PO SCH (10:06)
[2018-05-29] MEDS: PriLOSEC PO SCH ×2 (10:06→20:38)
[2018-05-29] MEDS: LOVENOX INJ 30 MG SYR SC SCH (10:07)
[2018-05-29] MEDS: ZITHROMAX INJ 500 MG VIAL 500 MG in NS 250 ML IV 250 ML IV SCH (10:10)
[2018-05-29] MEDS: ROCEPHIN VIAL 1 GRAM IVP SCH (10:16)
[2018-05-29] MEDS: MILK OF MAGNESIA PO SCH ×2 (14:05→20:38)
--- NOTE | 2018-05-29 17:15 | PCM.PROG ---
Progress Note - Progress Note for Day of Date of Exam: 05/29/18 - Subjective Subjective: 67 WF ER ADMISSION ON 05/27 WITH AMS. PT HAD CT HEAD ON ADMISSION WITH ACUTE SINUSITIS, NO ACUTE CVA. PT HAD ACUTE RENAL INSUFFICIENCY. PT HAD BLOOD CULTURES COLLECTED ON ADMISSION, NEGATIVE AT THIS TIME. PT IS ON ROCEPHIN AND ZITHROMAX IV. STARTED ON LEVAQUIN YESTERDAY. PT REPORTS SLIGHT GARCIA THIS AM, PT MORE AWAKE AND ALERT, NORMAL RESPONSES THIS AM. WILL CONTINUE IV HYDRATION AND ENCOURAGED ORAL HYDRATION. - Past Medical Family Social History Past Med/Fam/Surg Hx: No changes since H&P Allergies: Allergies Penicillins Allergy (Verified 05/27/18 08:15) - Review of Systems ROS: No change since H&P - Vital Signs and I&O's Vital Signs: Temperature 98.6 F Pulse Rate [Right Brachial] 67 Pulse Rate [Apical] 83 Pulse Rate 82 Respiratory Rate 20 Blood Pressure [Right Arm] 137/61 Blood Pressure 184/79 O2 Sat by Pulse Oximetry 97 Intake and Output: Intake & Output 05/27/18 05/28/18 05/29/18 05/30/18 11:59 11:59 11:59 11:59 Intake Total 1441 / 1441 2494 / 2494 2284 / 2284 Output Total 200 / 200 300 / 300 Balance 1241 / 1241 2194 / 2194 2284 / 2284 - Physical Exam Oriented: Person Eyes: Blurred Vision Ear: Normal Nose: Normal Throat: Normal Respiratory: Diminished Cardiovascular: Normal, Edema : Normal Auscultation: Bowel Sounds: Normal Tenderness: Normal Skin: Normal Musculoskeletal: Back:Thoracic (BILATERAL CVA TENDERNESS) Psychiatric: Anxiety Mood Description: Calm Affect: Anxious Speech Pattern: Clear, Appropriate - Laboratory and Diagnostics Result Diagrams: 05/29/18 05:36 05/29/18 05:36 Labs: 05/28/18 14:55 Urine,Clean Catch Urine Culture - Preliminary 05/27/18 08:45 Blood Blood Culture - Preliminary 05/27/18 08:35 Blood Blood Culture - Preliminary Laboratory WBC 7.6 X10^3/uL (3.6-10.0) 05/29/18 05:36 RBC 2.89 X10^6/uL (3.5-5.4) L 05/29/18 05:36 Hgb 9.2 g/dL (12.0-16.0) L 05/29/18 05:36 Hct 27.0 % (36.0-47.0) L 05/29/18 05:36 MCV 93.2 fL (80.0-100.0) 05/29/18 05:36 MCH 31.8 pg (27.0-34.0) 05/29/18 05:36 MCHC 34.2 g/dL (33.0-35.0) 05/29/18 05:36 RDW 15.7 % (11.6-16.5) 05/29/18 05:36 Plt Count 106 X10^3/uL (150.0-450.0) L 05/29/18 05:36 MPV 8.9 fL (7.4-11.0) 05/29/18 05:36 Neut % (Auto) 53.8 % (42.0-75.0) 05/29/18 05:36 Lymph % (Auto) 34.9 % (21.0-51.0) 05/29/18 05:36 [place] % (Auto) 7.3 % (0.0-13.0) 05/29/18 05:36 Eos % (Auto) 3.1 % (0.9-2.9) H 05/29/18 05:36 Baso % (Auto) 0.9 % (0.2-1.0) 05/29/18 05:36 Neut # (Auto) 4.1 x10^3/uL (2.2-4.8) 05/29/18 05:36 Lymph # (Auto) 2.7 X10^3/uL (1.3-2.9) 05/29/18 05:36 [place] # (Auto) 0.6 x10^3/uL (0.3-0.8) 05/29/18 05:36 Eos # (Auto) 0.2 x10^3/uL (0.0-0.2) 05/29/18 05:36 Baso # (Auto) 0.1 X10^3/uL (0.0-0.1) 05/29/18 05:36 Absolute Nucleated RBC 0.0 /100WBC 05/29/18 05:36 ESR 68 MM/HOUR (0-20) H 05/28/18 13:00 INR Target Range - 05/27/18 08:35 INR 1.06 (0.8-1.3) 05/27/18 08:35 APTT 31.4 SECONDS (22.9-36.5) 05/27/18 08:35 PTT Comment - 05/27/18 08:35 Sodium 137 mmol/L (136-145) 05/29/18 05:36 Corrected Sodium TNP 05/29/18 05:36 Potassium 4.1 mmol/L (3.5-5.1) 05/29/18 05:36 Chloride 105 mmol/L (98-107) 05/29/18 05:36 Carbon Dioxide 24.5 mmol/L (21-32) 05/29/18 05:36 BUN 32 mg/dL (7-18) H 05/29/18 05:36 Creatinine 2.10 mg/dL (0.55-1.02) H 05/29/18 05:36 Est GFR (MDRD) Af Amer 30 (>60) L 05/29/18 05:36 Est GFR (MDRD) Non-Af 25 (>60) L 05/29/18 05:36 Glucose 72 mg/dL (65-99) 05/29/18 05:36 POC Glucose (mg/dL) 148 mg/dL (65-99) H 05/29/18 16:33 Lactic Acid 1.4 mmol/L (0.4-2.0) 05/27/18 08:35 Calcium 8.1 mg/dL (8.5-10.1) L 05/29/18 05:36 Corrected Calcium 9.4 mg/dL (8.5-10.1) 05/29/18 05:36 Total Bilirubin 0.20 mg/dL (0.2-1.0) 05/29/18 05:36 AST 28 Units/L (15-37) 05/29/18 05:36 ALT 19 Units/L (12-78) 05/29/18 05:36 Alkaline Phosphatase 79 Units/L (46-116) 05/29/18 05:36 Ammonia 26 umol/L (11-32) 05/28/18 09:47 Creatine Kinase 273 Units/L (26-192) H 05/28/18 00:45 CK-MB (CK-2) 7.9 ng/mL (0-4.0) H* 05/28/18 00:45 CK/CKMB % Calc 2.9 % (<4) 05/28/18 00:45 Troponin I 0.03 ng/mL (0-1.5) 05/28/18 00:45 C-Reactive Protein 9.00 mg/L (0-3.0) H 05/28/18 13:00 Total Protein 5.9 g/dL (6.4-8.2) L 05/29/18 05:36 Albumin 2.4 g/dL (3.4-5.0) L 05/29/18 05:36 Globulin 3.5 g/dL (2.5-4.5) 05/29/18 05:36 Albumin/Globulin Ratio 0.7 Ratio (1.1-2.1) L 05/29/18 05:36 Triglycerides 164 mg/dL (0-150) H 05/28/18 05:29 Cholesterol 92 mg/dL (0-200) 05/28/18 05:29 LDL Cholesterol, Calc 32 mg/dL (0-100) 05/28/18 05:29 HDL Cholesterol 27 mg/dL (40-60) L 05/28/18 05:29 Cholesterol/HDL Ratio 3.4 (0.0-5.0) 05/28/18 05:29 Specimen Type Catherized urine 05/27/18 10:56 Urine Color Yellow (YELLOW) 05/27/18 10:56 Urine Appearance Slightly hazy (CLEAR) 05/27/18 10:56 Urine pH 6.0 (5.0 - 8.0) 05/27/18 10:56 Ur Specific [place] 1.020 (1.000-1.030) 05/27/18 10:56 Urine Protein 4+ (NEGATIVE) 05/27/18 10:56 Urine Glucose (UA) 2+ (NEGATIVE) 05/27/18 10:56 Urine Ketones 1+ (NEGATIVE) 05/27/18 10:56 Urine Occult Blood 4+ (NEGATIVE) 05/27/18 10:56 Urine Nitrite Negative (NEGATIVE) 05/27/18 10:56 Urine Bilirubin Negative (NEGATIVE) 05/27/18 10:56 Urine Urobilinogen Normal (NORMAL) 05/27/18 10:56 Ur Leukocyte Esterase Negative (NEGATIVE) 05/27/18 10:56 Urine RBC 3-5 /HPF (NONE SEEN) 05/27/18 10:56 Urine WBC 0-2 /HPF (NONE SEEN) 05/27/18 10:56 Ur Squamous Epith Cells Few /HPF (NEGATIVE) 05/27/18 10:56 Urine Bacteria Trace /HPF (NEGATIVE) 05/27/18 10:56 Ur Culture Indicated? No/not indicated 05/27/18 10:56 Influenza Type A (PCR) Negative (NEGATIVE) 05/28/18 13:40 Influenza Type B (PCR) Negative (NEGATIVE) 05/28/18 13:40 - Plan (1) Altered mental status Status: Acute Plan: SERIAL CE, EKG COLLECTED ON ADMISSION. CT HEAD ON ADMISSION, CAROTID ARTERY US WITHOUT SIGNIFICANT STENOSIS. IV HYDRATION, BLOOD CULTURES, URINE CULTURES. IV ATBX THERAPY, VERIFY HOME MEDICATION. CONTINUOUS CARDIAC MONITORING, RESP CONSULT, LACTIC ACID. BP AND BS CONTROL (2) Hypertension Status: Acute (3) Diabetes Status: Acute (4) Acute maxillary sinusitis Status: Acute Plan: IV ATBX (5) Acute renal failure Status: Acute Plan: HYDRATION
[2018-05-29] MEDS ORDERED: CONSULT PHARMACY - ANTIBIOTIC XX SCH (18:00)
[2018-05-29] MEDS: NEURONTIN CAP 300 MG PO SCH (20:38)
[2018-05-29] MEDS: LIPITOR TAB 10 MG PO SCH (20:38)
[2018-05-29] MEDS: COLACE CAP 100 MG PO SCH (20:38)
[2018-05-29] MEDS: SNACK - Diabetic Appropriate PO SCH (20:41)
[2018-05-30 06:06] LABS: BASOPHILS # (AUTO) 0.1 X10^3/uL (0.0-0.1); BASOPHILS % (AUTO) 1.4 % (0.2-1.0); EOSINOPHILS # (AUTO) 0.3 x10^3/uL (0.0-0.2); EOSINOPHILS % (AUTO) 4.6 % (0.9-2.9); HEMATOCRIT 29.3 % (36.0-47.0); LYMPHOCYTES # (AUTO) 1.5 X10^3/uL (1.3-2.9); MEAN CORPUSCULAR HEMOGLOBIN 31.7 pg (27.0-34.0); MEAN CORPUSCULAR HGB CONC 34.1 g/dL (33.0-35.0); MEAN CORPUSCULAR VOLUME 93.2 fL (80.0-100.0); MONOCYTES # (AUTO) 0.4 x10^3/uL (0.3-0.8); MONOCYTES % (AUTO) 6.1 % (0.0-13.0); NEUTROPHILS # (AUTO) 4.1 x10^3/uL (2.2-4.8); NEUTROPHILS % (AUTO) 63.9 % (42.0-75.0); PLATELET COUNT 109 X10^3/uL (150.0-450.0); RED BLOOD COUNT 3.15 X10^6/uL (3.5-5.4); RED CELL DISTRIBUTION WIDTH 15.4 % (11.6-16.5); WHITE BLOOD COUNT 6.4 X10^3/uL (3.6-10.0)
[2018-05-30 06:23] LABS: ALBUMIN 2.5 g/dL (3.4-5.0); CALCIUM 8.2 mg/dL (8.5-10.1); CARBON DIOXIDE 27.1 mmol/L (21-32); COR CA(FOR HYPOALB) 9.4 mg/dL (8.5-10.1); CREATININE 1.88 mg/dL (0.55-1.02); TOTAL PROTEIN 6.1 g/dL (6.4-8.2)
[2018-05-30] MEDS: NS 1000 ML 1,000 ML IV SCH ×3 (07:08→14:32)
[2018-05-30] MEDS: MILK OF MAGNESIA PO SCH ×3 (09:24→21:18)
[2018-05-30] MEDS: MICRO K EXTEN CAP 10 MEQ PO SCH (09:25)
[2018-05-30] MEDS: ROCEPHIN VIAL 1 GRAM IVP SCH (09:25)
[2018-05-30] MEDS: PriLOSEC PO SCH ×2 (09:25→21:18)
[2018-05-30] MEDS: OSCAL+D or CALTRATE+D PO SCH (09:25)
[2018-05-30] MEDS: LOVENOX INJ 30 MG SYR SC SCH (09:25)
[2018-05-30] MEDS: COZAAR PO SCH (09:25)
[2018-05-30] MEDS: AMARYL TAB 4 MG PO SCH ×2 (09:25→21:16)
[2018-05-30] MEDS: PROCARDIA XL PO SCH (09:25)
[2018-05-30] MEDS: CLARITIN PO SCH (09:25)
[2018-05-30] MEDS: ZYLOPRIM PO SCH (09:25)
[2018-05-30] MEDS: LEVAQUIN PREMIX IV 250 MG 250 MG/50 ML BAG IV SCH (09:26)
[2018-05-30] MEDS: ZITHROMAX INJ 500 MG VIAL 500 MG in NS 250 ML IV 250 ML IV SCH (09:26)
[2018-05-30] MEDS: SNACK - Diabetic Appropriate PO SCH (20:00)
[2018-05-30] MEDS: COLACE CAP 100 MG PO SCH (21:16)
[2018-05-30] MEDS: NEURONTIN CAP 300 MG PO SCH (21:17)
[2018-05-30] MEDS: LIPITOR TAB 10 MG PO SCH (21:17)
[2018-05-31] MEDS: NS 1000 ML 1,000 ML IV SCH ×2 (01:38→10:01)
[2018-05-31 05:19] LABS: ALANINE AMINOTRANSFERASE 22 Units/L (12-78); ALBUMIN 2.5 g/dL (3.4-5.0); ALKALINE PHOSPHATASE 76 Units/L (46-116); ASPARTATE AMINO TRANSFERASE 29 Units/L (15-37); BLOOD UREA NITROGEN 26 mg/dL (7-18); CALCIUM 8.3 mg/dL (8.5-10.1); CARBON DIOXIDE 25.3 mmol/L (21-32); CHLORIDE 110 mmol/L (98-107); COR CA(FOR HYPOALB) 9.5 mg/dL (8.5-10.1); CREATININE 1.67 mg/dL (0.55-1.02); SODIUM 143 mmol/L (136-145); eGFR NON BLACK RACES 32 (>60)
[2018-05-31 05:30] LABS: BASOPHILS # (AUTO) 0.1 X10^3/uL (0.0-0.1); BASOPHILS % (AUTO) 0.8 % (0.2-1.0); EOSINOPHILS # (AUTO) 0.3 x10^3/uL (0.0-0.2); EOSINOPHILS % (AUTO) 3.2 % (0.9-2.9); HEMATOCRIT 30.6 % (36.0-47.0); HEMOGLOBIN 10.3 g/dL (12.0-16.0); LYMPHOCYTES # (AUTO) 2.2 X10^3/uL (1.3-2.9); LYMPHOCYTES % (AUTO) 24.5 % (21.0-51.0); MEAN CORPUSCULAR HEMOGLOBIN 31.7 pg (27.0-34.0); MEAN CORPUSCULAR HGB CONC 33.7 g/dL (33.0-35.0); MEAN CORPUSCULAR VOLUME 94.1 fL (80.0-100.0); MONOCYTES # (AUTO) 0.5 x10^3/uL (0.3-0.8); MONOCYTES % (AUTO) 6.2 % (0.0-13.0); NEUTROPHILS # (AUTO) 5.8 x10^3/uL (2.2-4.8); NEUTROPHILS % (AUTO) 65.3 % (42.0-75.0); PLATELET COUNT 125 X10^3/uL (150.0-450.0); RED BLOOD COUNT 3.25 X10^6/uL (3.5-5.4); RED CELL DISTRIBUTION WIDTH 15.9 % (11.6-16.5); WHITE BLOOD COUNT 8.8 X10^3/uL (3.6-10.0)
[2018-05-31] MEDS: ROCEPHIN VIAL 1 GRAM IVP SCH (09:54)
[2018-05-31] MEDS: OSCAL+D or CALTRATE+D PO SCH (09:55)
[2018-05-31] MEDS: AMARYL TAB 4 MG PO SCH (09:55)
[2018-05-31] MEDS: PriLOSEC PO SCH (09:55)
[2018-05-31] MEDS: MILK OF MAGNESIA PO SCH (09:55)
[2018-05-31] MEDS: ZYLOPRIM PO SCH (09:55)
[2018-05-31] MEDS: PROCARDIA XL PO SCH (09:56)
[2018-05-31] MEDS: COZAAR PO SCH (09:56)
[2018-05-31] MEDS: CLARITIN PO SCH (09:56)
[2018-05-31] MEDS: MICRO K EXTEN CAP 10 MEQ PO SCH (09:57)
[2018-05-31] MEDS: LOVENOX INJ 30 MG SYR SC SCH (09:58)
[2018-05-31] MEDS: LEVAQUIN PREMIX IV 250 MG 250 MG/50 ML BAG IV SCH (09:59)
[2018-05-31] MEDS: ZITHROMAX INJ 500 MG VIAL 500 MG in NS 250 ML IV 250 ML IV SCH (10:46)
[2018-05-31 15:52] VITALS: BP 148/68
== END 2018-05-31 19:15 | disposition home or self-care (01) | DRG 684 ==
LOC: ER 08:05 → INTOOBSV 12:11 → MED/SURG 12:11
PROVIDERS: ADMIT Internal Medicine; ATTEND Internal Medicine
DX: I10 Essential (primary) hypertension; R94.4 Abnormal results of kidney function studies; N17.8 Other acute kidney failure; J01.00 Acute maxillary sinusitis, unspecified; E11.65 Type 2 diabetes mellitus with hyperglycemia; R41.82 Altered mental status, unspecified; R26.89 Other abnormalities of gait and mobility; R79.82 Elevated C-reactive protein (CRP)
CPT/HCPCS: 36415; 51701; 70450; 71010; 71045; 71250; 80053; 80061; 81001; 82140; 82550; 82553; 83605; 84484; 85025; 85610; 85652; 85730; 86140; 87040; 87086; 87502; 93005; 93880; 94760; 96365; 96367; 96374; 96375; 97110; 97116; 97162; 97166; 97530; 99284; A4222; G0378; J0456; J0696; J1650; J1956; J2270; J2405; J3490; J7030; J7050

== ENCOUNTER 2018-12-07 08:36 | Inpatient (IN) ==
[2018-12-07 08:46] VITALS: BMI 48.3
--- NOTE | 2018-12-07 08:52 | DR.SOBA ---
HPI Time Seen Time Seen by Provider: 12/07/18 08:48 Primary Care Physician Primary Care Physician: CHEN HPI Comment HPI Comment: PATIENT IS 68YR OLD WHITE FEMALE IN THE EMERGENCY ROOM WITH INCREASING SOB AND CHEST TIGHTNESS TIMES ONE WEEK. PATIENT HAVE 6/10 CHEST TIGHTNESS NON RADIATING ASSOCIATED WITH LOW GRADE FEVER. NO DYSURIA. ON LASIX. . Complaints Chief Complaint Doctors Comments: CHEST PAIN/TIGHTNESS AND INCREASING SOB TIMES ONE WEEK. Chief Complaint:: PT C/O > SOB FOR THE PAST WEEK , PT IS ON LASIX EVERY OTHER DAY, PT C/O CHEST TIGHTNESS NO PAIN, EXP . WHEEZES NOTED , AND RESP UN-EVEN AND LABORDED .BR Reviewed Nurses Notes Reviewed: Yes Source History Provided: Patient Mode of Arrival Mode of Arrival: Ambulatory Timing Onset of Chief Complaint: 11/30/18 Context Onset:: At Rest PE Risk Factors:: None PMH PMH Past Medical History: Yes Past Medical History: Arthritis, Diabetes, GERD, Gout and Hypertension Past Surgical History: Yes Surgical History: Cholecystectomy, Hysterectomy, Joint Replacement and Other Family History History of Family Medical Conditions: No Social History Does patient currently use any type of tobacco product: No Have you used tobacco products in the last 12 months: No Type of Tobacco Use: None Does any household member use tobacco: No Alcohol Use: None Do you use any recreational Drugs:: No Lives With: Family Lives Where: Home infectious screening In the last 2 months have you had wt loss of >10#?: NO Have you had fever, night sweats or hemotysis?: No Have you traveled outside the country in the last 6 months?: No Isolation: Standard ROS Review of Systems Constitutional: See HPI, Weakness and Fatigue; negative Fever Eyes: No Symptoms Reported and See HPI ENTM: No Symptoms Reported, See HPI and Nose Congestion; negative Ear Pain, Nose Discharge and Throat Pain Respiratoy: No Symptoms Reported, See HPI, Moist Cough and Wheezing; negative Short of Breath Cardiovascular: See HPI and Edema Gastrointestinal/Abdominal: No Symptoms Reported and See HPI; negative Abdominal Pain, Constipation, Diarrhea, Nausea and Vomiting Genitourinary: No Symptoms Reported, See HPI, Dysuria, Frequency and Hematuria Neurological: No Symptoms Reported and See HPI Musculoskeletal: No Symptoms Reported and See HPI Integumentary: No Symptoms Reported, See HPI and Other (EDEMA LOWER EXTREMITIES.); negative Change in Color, Rash and Juandice Hematologic/Lymphatic: No Symptoms Reported and See HPI; negative Easy Bruising and Swollen Glands Endocrine: No Symptoms Reported and See HPI; negative Increased Thirst and Increased Urine Psychiatric: No Symptoms Reported and See HPI All Other Systems: Reviewed and Negative PE Vital Signs Vitals: Temperature 98.5 F Pulse Rate [Left Radial] 96 Pulse Rate 92 Respiratory Rate 20 Blood Pressure [Left Arm] 129/72 Blood Pressure [Right Arm] 148/68 Blood Pressure 165/68 O2 Sat by Pulse Oximetry 93 General Limitations: No Limitations General Appearance: Alert, In No Apparent Distress and In Distress Head Head Exam: Normal Inspection and Atraumatic Eyes Eye exam: Normal Appearance and PERRL; negative Scleral Icterus and Conjunctival Injection ENT ENT Exam: Normal Exam, Normal Oropharynx, Normal External Ear Exam and TM's Normal Bilaterally Neck Neck Exam: Normal Inspection and Trachea Midline; negative Tenderness and Lymphadenopathy Chest Chest Inspection: Normal Inspection and Symmetric Chest Wall Rise; negative Tenderness Respiratory Respiratory Exam: Prolonged Expiratory Phase and Respiratory Distress; negative Accessory Muscle Use and Chest Wall Tenderness Respiratory Exam: Bilateral: Wheezing and Bilateral: Rhonchi and Lower: Wheezing and Lower: Rhonchi Cardiovascular Cardiovascular Exam: Regular Rate, Normal Rhythm and Normal Heart Sounds; negative Systolic Murmur and Diastolic Murmur Abdominal Exam Abdominal Exam: Normal Inspection, Normal Bowel Sounds and Soft; negative Tenderness Extremities Extremities Exam: Normal Capillary Refill and Edema; negative Tenderness and Calf Tenderness Back Back Exam: Normal Inspection; negative Tenderness, (R) CVA Tenderness and (L) CVA Tenderness Neurologic Neurological Exam: Alert and Oriented X3; negative Motor Sensory Deficit Psychiatric Psychiatric Exam: Normal Affect and Normal Mood Skin Skin Exam: Warm, Dry, Intact, Normal Color and Other (EDEMA 1 PLUS.) MDM Differential Diagnosis Differential Diagnosis: Asthma, Bronchitis, CHF, COPD, Hyponatremia, Mycardial Infarction, Pneumonia, Pneumothorax, Pulmonary embolism and Sinusitis COURSE Treatment Treatment: SEE ORDERS. 09:08 XOPENEX 1.25MG /3ML NEB Reevaluation 1st: Improved Education/Counseling Education/Counseling: Patient Educated On: Diagnosis ROR Labs Reviewed Laboratory Results Reviewed?: Yes Result Diagrams: 12/08/18 05:40 12/08/18 13:20 Laboratory: 12/07/18 09:12 Blood Blood Culture - Final 12/07/18 09:10 Blood Blood Culture - Final 12/07/18 10:06 Urine,Catheterized Urine Culture - Final WBC 15.2 X10^3/uL (3.6-10.0) H 12/08/18 05:40 RBC 2.81 X10^6/uL (3.5-5.4) L 12/08/18 05:40 Hgb 8.6 g/dL (12.0-16.0) L 12/08/18 05:40 Hct 25.7 % (36.0-47.0) L 12/08/18 05:40 MCV 91.2 fL (80.0-100.0) 12/08/18 05:40 MCH 30.4 pg (27.0-34.0) 12/08/18 05:40 MCHC 33.4 g/dL (33.0-35.0) 12/08/18 05:40 RDW 14.9 % (11.6-16.5) 12/08/18 05:40 Plt Count 171 X10^3/uL (150.0-450.0) 12/08/18 05:40 MPV 7.7 fL (7.4-11.0) 12/08/18 05:40 Neut % (Auto) 75.3 % (42.0-75.0) H 12/08/18 05:40 Lymph % (Auto) 17.3 % (21.0-51.0) L 12/08/18 05:40 [place] % (Auto) 6.6 % (0.0-13.0) 12/08/18 05:40 Eos % (Auto) 0.0 % (0.9-2.9) L 12/08/18 05:40 Baso % (Auto) 0.8 % (0.2-1.0) 12/08/18 05:40 Neut # (Auto) 11.4 x10^3/uL (2.2-4.8) H 12/08/18 05:40 Lymph # (Auto) 2.6 X10^3/uL (1.3-2.9) 12/08/18 05:40 [place] # (Auto) 1.0 x10^3/uL (0.3-0.8) H 12/08/18 05:40 Eos # (Auto) 0.0 x10^3/uL (0.0-0.2) 12/08/18 05:40 Baso # (Auto) 0.1 X10^3/uL (0.0-0.1) 12/08/18 05:40 Absolute Nucleated RBC 0.1 /100WBC 12/08/18 05:40 Sample Site Left radial 12/08/18 13:48 ABG pH 7.420 (7.35-7.45) 12/08/18 13:48 ABG pCO2 30.0 mmHg (35.0-45.0) L 12/08/18 13:48 ABG pO2 60.0 mmHg (80.0-100.0) L 12/08/18 13:48 ABG HCO3 19.5 mmol/L (22-26) L 12/08/18 13:48 ABG O2 Saturation 91.0 % (90-100) 12/08/18 13:48 ABG Base Excess -4.0 mmol/L (-2.0-2.0) L 12/08/18 13:48 Duncan Test Pos 12/08/18 13:48 A-a Gradient 52.0 mmHg 12/08/18 13:48 FiO2 21.0 12/08/18 13:48 Blood Gas Comments Rashad well aw 12/08/18 13:48 Sodium 134 mmol/L (136-145) L 12/08/18 13:20 Corrected Sodium 136 mmol/L (136-145) 12/08/18 13:20 Potassium 4.6 mmol/L (3.5-5.1) 12/08/18 13:20 Chloride 100 mmol/L (98-107) 12/08/18 13:20 Carbon Dioxide 20.2 mmol/L (21-32) L 12/08/18 13:20 BUN 44 mg/dL (7-18) H 12/08/18 13:20 Creatinine 3.00 mg/dL (0.55-1.02) H 12/08/18 13:20 Est GFR (MDRD) Af Amer 20 (>60) L 12/08/18 13:20 Est GFR (MDRD) Non-Af 16 (>60) L 12/08/18 13:20 Glucose 199 mg/dL (65-99) H 12/08/18 13:20 POC Glucose (mg/dL) 180 mg/dL (65-99) H 12/08/18 11:45 Lactic Acid 1.9 mmol/L (0.4-2.0) 12/07/18 09:12 Calcium 8.3 mg/dL (8.5-10.1) L 12/08/18 13:20 Corrected Calcium 9.0 mg/dL (8.5-10.1) 12/08/18 05:40 Magnesium 1.6 mg/dL (1.7-2.9) L 12/08/18 05:40 Iron 32 ug/dL (50-175) L 12/08/18 05:40 Transferrin 236 mg/dL (202-364) 12/08/18 05:40 Ferritin 171 ng/mL (8-252) 12/08/18 05:40 Total Bilirubin 0.60 mg/dL (0.2-1.0) 12/08/18 05:40 AST 31 Units/L (15-37) 12/08/18 05:40 ALT 16 Units/L (12-78) 12/08/18 05:40 Alkaline Phosphatase 106 Units/L (46-116) 12/08/18 05:40 Creatine Kinase 187 Units/L (26-192) 12/07/18 23:01 CK-MB (CK-2) 5.7 ng/mL (0-4.0) H* 12/07/18 23:01 CK/CKMB % Calc 3.1 % (<4) 12/07/18 23:01 Troponin I < 0.02 ng/mL (0-1.5) 12/07/18 23:01 B-Natriuretic Peptide 268 pg/mL (0-79) H 12/07/18 09:12 Total Protein 7.3 g/dL (6.4-8.2) 12/08/18 05:40 Albumin 2.9 g/dL (3.4-5.0) L 12/08/18 05:40 Globulin 4.4 g/dL (2.5-4.5) 12/08/18 05:40 Albumin/Globulin Ratio 0.7 Ratio (1.1-2.1) L 12/08/18 05:40 Triglycerides 132 mg/dL (0-150) 12/08/18 05:40 Cholesterol 112 mg/dL (0-200) 12/08/18 05:40 LDL Cholesterol, Calc 45 mg/dL (0-100) 12/08/18 05:40 HDL Cholesterol 41 mg/dL (40-60) 12/08/18 05:40 Cholesterol/HDL Ratio 2.7 (0.0-5.0) 12/08/18 05:40 Vitamin B12 746 pg/mL (193-986) 12/08/18 05:40 Folate 6.6 ng/mL (>8.6) L 12/08/18 05:40 Specimen Type Catherized urine 12/07/18 10:06 Urine Color Yellow (YELLOW) 12/07/18 10:06 Urine Appearance Cloudy (CLEAR) 12/07/18 10:06 Urine pH 5.0 (5.0 - 8.0) 12/07/18 10:06 Ur Specific [place] 1.025 (1.000-1.030) 12/07/18 10:06 Urine Protein 4+ (NEGATIVE) 12/07/18 10:06 Urine Glucose (UA) 2+ (NEGATIVE) 12/07/18 10:06 Urine Ketones 1+ (NEGATIVE) 12/07/18 10:06 Urine Occult Blood 3+ (NEGATIVE) 12/07/18 10:06 Urine Nitrite Negative (NEGATIVE) 12/07/18 10:06 Urine Bilirubin Negative (NEGATIVE) 12/07/18 10:06 Urine Urobilinogen Normal (NORMAL) 12/07/18 10:06 Ur Leukocyte Esterase 1+ (NEGATIVE) 12/07/18 10:06 Urine RBC 3-5 /HPF (0-3) A 12/07/18 10:06 Urine WBC 5-10 /HPF (0-5) A 12/07/18 10:06 Ur Squamous Epith Cells Moderate /HPF (NEGATIVE) 12/07/18 10:06 Amorphous Sediment 2+ /HPF (NEGATIVE) 12/07/18 10:06 Urine Bacteria 1+ /HPF (NEGATIVE) 12/07/18 10:06 Ur Culture Indicated? Yes/culture set up 12/07/18 10:06 Influenza Type A (PCR) Negative (NEGATIVE) 12/08/18 14:45 Influenza Type B (PCR) Negative (NEGATIVE) 12/08/18 14:45 XRAY XRAY Interpreted by: Radiologist XRAY Findings: REPORT NOTED AND DISCUSSED WITH PATIENT. EKG Rate: 97 [place]: Normal Rhythm: NSR Block: None Hypertrophy: None ST: Nonsp Opioid Opioid Risk Tool Age ([place] box if 16-45): No History of Preadolescent Sexual Abuse: No Total: 0 Total Score Risk Category: Low Risk Copyright: Lawrence MENESES predicting aberrant behaviors Diagnosis Discharge Problem: Acute dyspnea Acute on chronic renal failure Qualifiers: Acute renal failure type: unspecified Chronic kidney disease stage: unspecified stage Qualified Code(s): N17.9 - Acute kidney failure, unspecified UTI (urinary tract infection) Qualifiers: Urinary tract infection type: site unspecified Hematuria presence: with hematuria Qualified Code(s): N39.0 - Urinary tract infection, site not specified Sinusitis Qualifiers: Sinusitis location: unspecified location Chronicity: unspecified Qualified Code(s): J32.9 - Chronic sinusitis, unspecified
[2018-12-07] MEDS ORDERED: XOPENEX 1.25 MG/3 ML NEBULE NEB ONE ×2 (09:03→09:05)
--- NOTE | 2018-12-07 09:13 | RAD ---
HISTORY: Shortness of breath Study: Chest AP portable Comparison: 05/27/2018 Findings: The heart is enlarged. No congestive heart failure is noted. No acute alveolar infiltrates or pleural effusions are identified. The bony thorax is unremarkable. A nodular density noted in the right lung apex is likely related to the right 1st rib. This could be confirmed with chest CT with contrast. IMPRESSION: Cardiomegaly without congestive heart failure No acute infiltrates Nodular density projected over the right lung apex is likely related to the right 1st rib. This could be confirmed with CT chest with contrast PE Reported By:
[2018-12-07 09:26] LABS: BASOPHILS # (AUTO) 0.1 X10^3/uL (0.0-0.1); BASOPHILS % (AUTO) 0.8 % (0.2-1.0); EOSINOPHILS # (AUTO) 0.1 x10^3/uL (0.0-0.2); EOSINOPHILS % (AUTO) 0.4 % (0.9-2.9); HEMATOCRIT 26.9 % (36.0-47.0); HEMOGLOBIN 9.1 g/dL (12.0-16.0); LYMPHOCYTES # (AUTO) 2.4 X10^3/uL (1.3-2.9); MEAN CORPUSCULAR HEMOGLOBIN 30.6 pg (27.0-34.0); MEAN CORPUSCULAR HGB CONC 33.6 g/dL (33.0-35.0); MEAN PLATELET VOLUME 7.4 fL (7.4-11.0); MONOCYTES # (AUTO) 0.8 x10^3/uL (0.3-0.8); MONOCYTES % (AUTO) 6.1 % (0.0-13.0); NEUTROPHILS # (AUTO) 10.1 x10^3/uL (2.2-4.8); NEUTROPHILS % (AUTO) 74.7 % (42.0-75.0); PLATELET COUNT 175 X10^3/uL (150.0-450.0); RED BLOOD COUNT 2.96 X10^6/uL (3.5-5.4); RED CELL DISTRIBUTION WIDTH 14.9 % (11.6-16.5); WHITE BLOOD COUNT 13.5 X10^3/uL (3.6-10.0)
[2018-12-07] MEDS ORDERED: LASIX IVP ONE ×2 (09:40→09:41)
[2018-12-07 09:42] LABS: BLOOD UREA NITROGEN 38 mg/dL (7-18); CALCIUM 9.1 mg/dL (8.5-10.1); CARBON DIOXIDE 20.6 mmol/L (21-32); CHLORIDE 102 mmol/L (98-107); COR NA(FOR HYPERGLY) 140 mmol/L (136-145); CREATININE 2.64 mg/dL (0.55-1.02); SODIUM 137 mmol/L (136-145); TROPONIN I < 0.02 ng/mL (0-1.5); eGFR NON BLACK RACES 19 (>60)
[2018-12-07 10:05] LABS: ALANINE AMINOTRANSFERASE 19 Units/L (12-78); ALKALINE PHOSPHATASE 111 Units/L (46-116); ASPARTATE AMINO TRANSFERASE 31 Units/L (15-37); CKMB % 4.6 % (<4); COR CA(FOR HYPOALB) 9.9 mg/dL (8.5-10.1); CREATINE KINASE 167 Units/L (26-192); TOTAL PROTEIN 7.3 g/dL (6.4-8.2)
[2018-12-07 10:11] LABS: CREATINE KINASE MB 7.7 ng/mL (0-4.0)
[2018-12-07 10:14] LABS: BILIRUBIN,URINE NEGATIVE (NEGATIVE); BLOOD/HEMOGLOBIN,URINE 3+ (NEGATIVE); GLUCOSE, URINE 2+ (NEGATIVE); KETONES,URINE 1+ (NEGATIVE); LEUKOCYTE ESTERASE ,URINE 1+ (NEGATIVE); NITRITES,URINE NEGATIVE (NEGATIVE); PROTEIN,URINE 4+ (NEGATIVE); UROBILINOGEN,URINE NORMAL (NORMAL)
[2018-12-07 10:24] LABS: APPEARANCE,URINE CLOUDY (CLEAR); COLOR,URINE YELLOW (YELLOW)
[2018-12-07 10:25] LABS: AMORPHOUS SEDIMENT,UR 2+ /HPF (NEGATIVE); BACTERIA,URINE 1+ /HPF (NEGATIVE); SQUAMOUS EPITHELIAL CELL,UR MODERATE /HPF (NEGATIVE)
[2018-12-07 10:36] LABS: ABG ALLEN TEST POSITIVE; ABG BASE EXCESS -0.5 mmol/L (-2.0-2.0); ABG HCO3 22.9 mmol/L (22-26)
--- NOTE | 2018-12-07 13:16 | CT ---
HISTORY: Dyspnea, chest heaviness, concern for sinusitis Study: CT paranasal sinuses without contrast Comparison: May 28, 2018 Technique: Multiple axial, coronal, and sagittal CT images of the paranasal sinuses were reviewed without contrast. AEC was utilized. Findings: The left frontal sinus is not pneumatized. The right frontal sinus is clear. The sphenoid sinuses are clear. The see no ethmoidal recesses are patent. There is chronic mucosal thickening involving the right posterior ethmoid sinus with the remaining ethmoid air cells demonstrating trace mucosal thickening. There are harriet bullosa bilaterally. The frontal recesses are patent. There is severe chronic right maxillary sinus mucoperiosteal thickening with the right ostiomeatal unit occluded. There is mild chronic mucosal thickening involving the left maxillary sinus. The left ostiomeatal unit is patent. No destructive osseous lesions are seen. The orbits are intact. There is nasal septal deviation and spurring to the left. Visualized intracranial structures are unremarkable. IMPRESSION: Severe chronic right maxillary sinusitis. Otherwise, mild paranasal sinus mucosal disease. Reported By:
[2018-12-07] MEDS ORDERED: NS 1000 ML 1,000 ML IV SCH (14:00)
[2018-12-07] MEDS: ROCEPHIN VIAL 1 GRAM IVP SCH (15:14)
[2018-12-07 17:48] LABS: CALCIUM 8.5 mg/dL (8.5-10.1); CARBON DIOXIDE 21.6 mmol/L (21-32); CREATININE 2.69 mg/dL (0.55-1.02)
[2018-12-07] MEDS ORDERED: NS 1000 ML 500 ML IV ONE (17:56)
[2018-12-07 18:21] LABS: CKMB % 3.3 % (<4); CREATINE KINASE 171 Units/L (26-192); TROPONIN I < 0.02 ng/mL (0-1.5)
[2018-12-07 18:27] LABS: CREATINE KINASE MB 5.7 ng/mL (0-4.0)
[2018-12-07] MEDS: NS 1000 ML 1,000 ML IV SCH (19:53)
[2018-12-07 23:49] LABS: CKMB % 3.1 % (<4); CREATINE KINASE 187 Units/L (26-192); TROPONIN I < 0.02 ng/mL (0-1.5)
[2018-12-07 23:56] LABS: CREATINE KINASE MB 5.7 ng/mL (0-4.0)
[2018-12-08] MEDS: NS 1000 ML 1,000 ML IV SCH ×3 (01:56→17:04)
[2018-12-08 06:05] LABS: BASOPHILS # (AUTO) 0.1 X10^3/uL (0.0-0.1); BASOPHILS % (AUTO) 0.8 % (0.2-1.0); HEMATOCRIT 25.7 % (36.0-47.0); HEMOGLOBIN 8.6 g/dL (12.0-16.0); LYMPHOCYTES # (AUTO) 2.6 X10^3/uL (1.3-2.9); LYMPHOCYTES % (AUTO) 17.3 % (21.0-51.0); MEAN CORPUSCULAR HEMOGLOBIN 30.4 pg (27.0-34.0); MEAN CORPUSCULAR HGB CONC 33.4 g/dL (33.0-35.0); MEAN CORPUSCULAR VOLUME 91.2 fL (80.0-100.0); MEAN PLATELET VOLUME 7.7 fL (7.4-11.0); MONOCYTES % (AUTO) 6.6 % (0.0-13.0); NEUTROPHILS # (AUTO) 11.4 x10^3/uL (2.2-4.8); NEUTROPHILS % (AUTO) 75.3 % (42.0-75.0); PLATELET COUNT 171 X10^3/uL (150.0-450.0); RED BLOOD COUNT 2.81 X10^6/uL (3.5-5.4); RED CELL DISTRIBUTION WIDTH 14.9 % (11.6-16.5); WHITE BLOOD COUNT 15.2 X10^3/uL (3.6-10.0)
[2018-12-08 06:23] LABS: ALBUMIN 2.9 g/dL (3.4-5.0); CALCIUM 8.1 mg/dL (8.5-10.1); CARBON DIOXIDE 19.8 mmol/L (21-32); CHOL/HDL RATIO 2.7 (0.0-5.0); CREATININE 2.83 mg/dL (0.55-1.02); MAGNESIUM 1.6 mg/dL (1.7-2.9); TOTAL PROTEIN 7.3 g/dL (6.4-8.2)
[2018-12-08] MEDS ORDERED: ROBITUSSIN DM PO PRN (08:24)
[2018-12-08] MEDS: XOPENEX 1.25 MG/3 ML NEBULE NEB PRN ×2 (08:49→15:58)
[2018-12-08] MEDS: ROCEPHIN VIAL 1 GRAM IVP SCH (08:53)
[2018-12-08] MEDS ORDERED: LOVENOX INJ 30 MG SYR SC SCH (09:00)
[2018-12-08] MEDS ORDERED: PULMICORT NEB TX 0.5 MG NEB SCH (09:00)
[2018-12-08] MEDS ORDERED: PROCARDIA XL PO SCH ×2 (09:00)
--- NOTE | 2018-12-08 09:16 | DR.H&P ---
H&P - History & Physical for Day of: H&P Date: 12/07/18 - Chief Complaint Chief Complaint: SOB - History of Present Illness History of Present Illness: 68 WF ER ADMISSION AFTER PRESENTING WITH CO SOB FOR THE PAST WEEK. PT IS ON LASIX EVERY OTHER DAY, PT C/O CHEST TIGHTNESS NO PAIN,. EXP WHEEZES NOTED ON EXAM. PT HAS PMH OF HTN, DM, RENAL INSUFFICIENCY UNDER THE CARE OF DR MEYERS. PT STATES SHE SEEN DR LARSON APPROX 2 WEEKS AGO AND STA RTED ON LASIX 40MG PO DAILY EVERY OTHER DAY. HAS PENDING HEART TESTS WITH [facility]. - Past Medical History Past Medical History: Arthritis, Diabetes, GERD, Gout, Hypertension, Renal Disease - Past Surgical History Surgical History: Cholecystectomy, Hysterectomy, Joint Replacement, Other - Social History Does patient currently use any type of tobacco product: No Have you used tobacco products in the last 12 months: No Type of Tobacco Use: None Does any household member use tobacco: No Alcohol Use: None Drug Use: None - Medications Home Medications: albuterol Allergy (Verified 12/07/18 08:42) Penicillins Allergy (Verified 12/07/18 08:42) CONTINUE taking the following medications aspirin [Aspir-81] 81 mg PO DAILY 12/07/18 [History] clarithromycin 500 mg PO BID 12/07/18 [History] furosemide [Lasix] 20 mg PO Q OTHER DAY PRN 12/07/18 [History] gentamicin 3 drp OPHTHALMIC (EYE) TID 12/07/18 [History] loratadine 10 mg PO DAILY 12/07/18 [History] nifedipine 30 mg PO DAILY 12/07/18 [History] nifedipine 60 mg PO DAILY 12/07/18 [History] - Review of Systems Constitutional: Weakness Eyes: No Symptoms Reported ENT: No Symptoms Reported Respiratory: Shortness of Breath, SOB with Excertion Cardiovascular: Chest Pain (CHEST PRESSURE), Edema Gastrointestinal: Nausea Genitourinary: No Symptoms Reported Musculoskeletal: No Symptoms Reported Skin: No Symptoms Reported Neurological: No Symptoms Reported - Physical Exam Vital Signs: Temperature 99.9 F Pulse Rate [Left Radial] 99 Pulse Rate 92 Respiratory Rate 18 Blood Pressure [Left Arm] 140/73 Blood Pressure [Right Arm] 148/68 Blood Pressure 165/68 O2 Sat by Pulse Oximetry 95 Oriented: Normal Eyes: Normal Ear: Normal Nose: Normal Throat: Normal Respiratory: RLL Diminished, LLL Diminished Cardiovascular: Normal : Normal Auscultation: Bowel Sounds: Normal Palpation: Normal Tenderness: Normal Skin: Normal Musculoskeletal: Normal Psychiatric: Anxiety Affect: Anxious Speech Pattern: Clear, Appropriate - Assessment/Plan (1) SOB (shortness of breath) Status: Acute Plan: ADMIT, SERIAL CE AND EKG. STRICT I & OS, GENTLE IV HYDRATION. AM CXR, BP CONTROL. BS CONTROL, SSI. ABG ON ADMISSION, URINE CULTURE, IV ROCEPHIN (2) Acute on chronic renal failure Status: Acute (3) UTI (urinary tract infection) Status: Acute (4) Diabetes Status: Acute (5) Hypertension Status: Acute - Allergies Allergies/Adverse Reactions: Allergies Allergy/AdvReac Type Severity Reaction Status Date / Time albuterol Allergy Verified 12/07/18 08:42 Penicillins Allergy Verified 12/07/18 08:42
--- NOTE | 2018-12-08 10:26 | RAD ---
HISTORY: Shortness of breath, weakness, abdominal distention. Prior medical history of hypertension and diabetes. Prior surgical history of appendectomy, cholecystectomy, hysterectomy. Study: Acute abdominal series Comparison: Chest x-ray done 12/07/2018. Findings: The trachea is midline. The cardiac silhouette is enlarged with aortic uncoiling.. There is a small focus of atelectasis or infiltrate present in the medial aspect of the right lung base. This is seen on both views. A small amount of right-sided pleural effusion is present also. Nodular density in the right lung apex does appear to be related to the right anterior 1st rib. The bony thorax is unremarkable. Flat plate and upright evaluation of the abdomen demonstrates a moderate amount of stool present throughout the colon. No bowel obstruction or perforation is seen. There are surgical clips from cholecystectomy.. No pathological soft tissue mass or calcification can be observed. The bony structures are grossly intact. IMPRESSION: 1. Small focus of atelectasis or infiltrate present involving the medial aspect of the right lung base. A small right-sided pleural effusion is also seen. There is mild cardiomegaly with aortic uncoiling. 2. No evidence for acute abdominal pathology identified. Reported By:
[2018-12-08 13:33] LABS: CALCIUM 8.3 mg/dL (8.5-10.1); CARBON DIOXIDE 20.2 mmol/L (21-32)
[2018-12-08 13:54] LABS: ABG ALLEN TEST POS; ABG HCO3 19.5 mmol/L (22-26)
[2018-12-08] MEDS ORDERED: HEMOCYTE-PLUS PO SCH (14:00)
[2018-12-08 16:13] VITALS: BP 139/62
[2018-12-08] MEDS ORDERED: HumuLIN R SC PRN (16:56)
[2018-12-08] MEDS ORDERED: SNACK - Diabetic Appropriate PO SCH (20:00)
[2018-12-08] MEDS ORDERED: ZOCOR TAB 20 MG PO SCH (21:00)
== END 2018-12-08 19:00 | disposition short-term general hospital (02) | DRG 204 ==
LOC: ER 08:38 → MED/SURG 08:38
PROVIDERS: ADMIT Obstetrics & Gynecology Obstetrics; ATTEND Internal Medicine
DX: I10 Essential (primary) hypertension; R07.89 Other chest pain; N17.9 Acute kidney failure, unspecified; R60.0 Localized edema; J32.8 Other chronic sinusitis; J90 Pleural effusion, not elsewhere classified; N18.9 Chronic kidney disease, unspecified; N39.0 Urinary tract infection, site not specified; E11.9 Type 2 diabetes mellitus without complications; R06.02 Shortness of breath; D72.829 Elevated white blood cell count, unspecified
CPT/HCPCS: 36415; 36600; 51702; 70486; 71010; 71045; 74022; 80048; 80053; 80061; 81001; 82550; 82553; 82607; 82728; 82746; 82803; 83540; 83605; 83735; 83880; 84466; 84484; 85025; 87040; 87086; 87502; 93005; 94640; 94760; 96365; 96374; 97162; 97166; 99284; A4222; G0378; J0696; J1650; J1815; J1940; J7030; J7626

== ENCOUNTER 2022-02-01 14:07 | Observation (INO) ==
[2022-02-01 15:19] LABS: MAGNESIUM 1.7 mg/dL (2.0-2.9); URIC ACID 5.8 mg/dL (2.6-6.0)
[2022-02-01] MEDS: ZYLOPRIM PO SCH (15:26)
[2022-02-01 15:37] VITALS: BMI 39.3
[2022-02-01] MEDS: SOLU-Medrol 40 MG VIAL IVP SCH ×3 (15:51→23:13)
[2022-02-01] MEDS: PERCOCET TAB 5/325 MG PO PRN (16:33)
[2022-02-01] MEDS ORDERED: MAG-OX TAB PO ONE (17:07)
--- NOTE | 2022-02-01 17:28 | DR.H&P ---
H&P - History & Physical for Day of: H&P Date: 02/01/22 - Chief Complaint Chief Complaint: LEFT KNEE PAIN, LEG SWELLING "CANNOT WALK" - History of Present Illness History of Present Illness: PT IS 71 WF, ADMITTED FROM DR CORDOVA OFFICE AFTER PRESENTING WITH CO OF INTRACTABLE LEFT KNEE PAIN, REDNESS AND SWELLING. PT CO ABRUPT ONSET OF LEFT CALF PAIN WITHOUT INJURY. PT WAS SEEN IN ER THIS MORNING AND HAD US OF LLE, NEGATIVE FOR DVT. PT STATES HE HAD NOT BEEN ABLE TO BEAR WEIGHT AND PAIN NOT CONTROLLED WITH TRAMADOL. PT HAS PMH OF RENAL FAILURE, DM, HTN AND GOUT - Past Medical History Past Medical History: Arthritis, CHF, Diabetes, Gout, Hypertension, Renal Disease - Past Surgical History Surgical History: Appendectomy, Cholecystectomy, Hysterectomy, Joint Replacement - Family History Family Medical History: Diabetes Mellitus, Cancer, Coronary Artery Disease, Hypertension - Social History Does patient currently use any type of tobacco product: No Have you used tobacco products in the last 12 months: No Type of Tobacco Use: None Does any household member use tobacco: No Alcohol Use: Rarely Drug Use: None - Medications Home Medications: albuterol Allergy (Verified 10/26/20 15:10) Penicillins Allergy (Verified 10/26/20 15:10) CONTINUE taking the following medications metolazone 2.5 mg tablet 2.5 tab PO BID 02/01/22 [History] - Review of Systems Constitutional: Weakness Eyes: No Symptoms Reported ENT: No Symptoms Reported Respiratory: No Symptoms Reported Cardiovascular: No Symptoms Reported Gastrointestinal: No Symptoms Reported Musculoskeletal: Leg Pain Skin: No Symptoms Reported Neurological: Weakness - Physical Exam Vital Signs: Temperature 98.1 F Pulse Rate [Left Radial] 70 Respiratory Rate 18 Blood Pressure [Left Arm] 135/63 O2 Sat by Pulse Oximetry 92 Oriented: Normal Eyes: Normal Ear: Normal Nose: Normal Throat: Normal Respiratory: Clear Throughout Cardiovascular: Normal, Edema : Normal Auscultation: Bowel Sounds: Normal Palpation: Normal Tenderness: Normal Skin: Decreased Turgur Musculoskeletal: Left, Leg, Swelling, Tender Psychiatric: Normal Speech Pattern: Clear, Appropriate - Assessment/Plan (1) Rheumatoid arthritis flare Status: Acute Plan: ADMIT, XRAY LEFT, CRP, SED RATE, URIC ACID LEVEL. PAIN CONTROL, BS CONTROL. IV SOLU MEDROL. BP CONTROL, VERIFY HOME MEDICATION (2) Knee effusion, left Status: Acute (3) Hypertension Qualifiers: Hypertension type: essential hypertension Qualified Code(s): I10 - Essential (primary) hypertension Status: Acute (4) Diabetes Status: Acute (5) End-stage renal disease (ESRD) Status: Acute - Allergies Allergies/Adverse Reactions: Allergies Allergy/AdvReac Type Severity Reaction Status Date / Time albuterol Allergy Verified 10/26/20 15:10 Penicillins Allergy Verified 10/26/20 15:10
[2022-02-01] MEDS ORDERED: SNACK - Diabetic Appropriate PO SCH (20:00)
--- NOTE | 2022-02-01 21:14 | RAD ---
EXAM: LEFT KNEE X-RAY SERIESHISTORY: Pain.TECHNIQUE: 2 viewsCOMPARISON: None.FINDINGS:The patient is status post total knee replacement. There is no prosthetic loosening, fracture, or dislocation seen. There is diffuse osteopenia.There is no acute bony fracture, or joint subluxation or dislocation seen. No suprapatellar soft tissue density reminiscent of a gross joint effusion is seen. No focal bone erosion or sclerosis is seen.There is peripheral atherosclerosis; nonspecific finding; rule out diabetic vasculopathy. No soft tissue emphysema, radiodense soft tissue mass or foreign body is seen.IMPRESSION:1. Status post total knee replacement, without prosthetic loosening or displacement.2. No acute bony fracture seen.3. Diffuse osteopenia.4. Peripheral atherosclerosis; nonspecific finding; rule out diabetic vasculopathy.Electronically signed by: Vikram Head (Feb 01, 2022 21:12:53)
[2022-02-01] MEDS: LASIX PO SCH (21:20)
[2022-02-01] MEDS: ASPIRIN EC 81 MG PO SCH (21:20)
[2022-02-01] MEDS: ZAROXOLYN PO SCH (21:25)
[2022-02-01] MEDS: NovoLIN R (or HumuLIN R) SUBCUT PRN (21:26)
[2022-02-01] MEDS: HEPARIN SODIUM INJ 5000 UNITS SC SCH (21:27)
[2022-02-02] MEDS: PERCOCET TAB 5/325 MG PO PRN (03:19)
[2022-02-02] MEDS: SOLU-Medrol 40 MG VIAL IVP SCH (05:57)
[2022-02-02] MEDS: HEPARIN SODIUM INJ 5000 UNITS SC SCH (06:00)
[2022-02-02] MEDS: NovoLIN R (or HumuLIN R) SUBCUT PRN (06:08)
[2022-02-02 06:52] LABS: BASOPHILS % (AUTO) 0.2 % (0.2-1.0); EOSINOPHILS % (AUTO) 0.1 % (0.9-2.9); HEMATOCRIT 33.4 % (36.0-47.0); HEMOGLOBIN 11.9 g/dL (12.0-16.0); LYMPHOCYTES % (AUTO) 12.8 % (21.0-51.0); MEAN CORPUSCULAR HEMOGLOBIN 32.3 pg (27.0-34.0); MEAN CORPUSCULAR HGB CONC 35.6 g/dL (33.0-35.0); MEAN CORPUSCULAR VOLUME 90.7 fL (80.0-100.0); MONOCYTES # (AUTO) 0.1 x10^3/uL (0.3-0.8); MONOCYTES % (AUTO) 0.9 % (0.0-13.0); NEUTROPHILS # (AUTO) 6.8 x10^3/uL (2.2-4.8); RED BLOOD COUNT 3.69 X10^6/uL (3.5-5.4); WHITE BLOOD COUNT 7.9 X10^3/uL (3.6-10.0)
[2022-02-02 07:07] LABS: ALBUMIN 2.9 g/dL (3.4-5.0); CALCIUM 8.1 mg/dL (8.5-10.1); CARBON DIOXIDE 30.9 mmol/L (21-32); CREATININE 2.81 mg/dL (0.55-1.02); TOTAL PROTEIN 7.3 g/dL (6.4-8.2)
[2022-02-02] MEDS ORDERED: NORVASC TAB 2.5 MG PO SCH (09:00)
[2022-02-02] MEDS ORDERED: TRADJENTA PO SCH (09:00)
[2022-02-02] MEDS ORDERED: NORVASC TAB 2.5 MG ONE (09:53)
[2022-02-02] MEDS: ASPIRIN EC 81 MG PO SCH (09:54)
[2022-02-02] MEDS: NEURONTIN CAP 100 MG PO SCH ×2 (09:54→09:58)
[2022-02-02] MEDS: ZYLOPRIM PO SCH (09:54)
[2022-02-02] MEDS: ZAROXOLYN PO SCH (09:56)
[2022-02-02] MEDS: LASIX PO SCH (10:37)
[2022-02-02 11:15] VITALS: BP 185/75
== END 2022-02-02 11:15 | disposition home or self-care (01) ==
LOC: MED/SURG
PROVIDERS: ADMIT Internal Medicine; ATTEND Internal Medicine
DX: R79.89 Other specified abnormal findings of blood chemistry; E11.65 Type 2 diabetes mellitus with hyperglycemia; N18.6 End stage renal disease; M25.562 Pain in left knee; M06.80 Other specified rheumatoid arthritis, unspecified site; R79.82 Elevated C-reactive protein (CRP); M25.462 Effusion, left knee; I12.0 Hypertensive chronic kidney disease with stage 5 chronic kidney disease or end stage renal disease

== ENCOUNTER 2024-05-12 10:25 | Observation (INO) ==
[2024-05-12 12:53] VITALS: BMI 31.7
[2024-05-12] MEDS ORDERED: PERCOCET TAB 5/325 MG PO PRN (13:25)
[2024-05-12] MEDS: SOLU-Medrol 40 MG VIAL IVP SCH (14:18)
[2024-05-12] MEDS: ROCEPHIN VIAL 1 GRAM 1 G in NS 100 ML IV 100 ML IV SCH (14:18)
[2024-05-12] MEDS: NS 250 ML IV 250 ML IV SCH (14:18)
[2024-05-12] MEDS: LASIX IVP SCH (14:19)
--- NOTE | 2024-05-12 14:24 | EKG ---
Test Reason : SOB, CHF, CAD Blood Pressure : */* mmHG Vent. Rate : 84 BPM Atrial Rate : 84 BPM P-R Int : 210 ms QRS Dur : 80 ms QT Int : 378 ms P-R-T Axes : 93 18 50 degrees QTc Int : 446 ms Sinus rhythm with 1st degree AV block Low voltage QRS Borderline ECG When compared with ECG of 01-NOV-2022 10:04, PA interval has increased Confirmed by Benoit Presley MD ([id number]) on 05/12/2024 2:22:44 PM Referred By: Confirmed By: Benoit Presley MD
--- NOTE | 2024-05-12 14:35 | RAD ---
EXAM: CHEST, 1 VIEW HISTORY: SHORTNESS OF BREATH; COMPARISON: Prior study or studies were utilized for comparison during interpretation with the most relevant cuauhtemoc ed 02/20/2024 TECHNIQUE: CHEST, 1 VIEW FINDINGS: Chest: Lines and tubes: None Mediastinum: Cardiomegaly. Pulmonary vessels: There is pulmonary vascular congestion. Lung raymundo: No suspicious airspace opacity. Pleura: No effusion. No pneumothorax. Bones and soft tissues: No acute osseous or soft tissue abnormality. Subclavian to SVC stent IMPRESSION: 1. Findings suggest heart failure THIS IS AN ELECTRONICALLY VERIFIED FINAL REPORT 05/12/2024 2:20 PM - Electronically signed by Alan Light MD
[2024-05-12 15:13] LABS: BASOPHILS # (AUTO) 0.1 X10^3/uL (0.0-0.1); BASOPHILS % (AUTO) 2.7 % (0.2-1.0); EOSINOPHILS # (AUTO) 0.2 x10^3/uL (0.0-0.2); EOSINOPHILS % (AUTO) 3.6 % (0.9-2.9); HEMATOCRIT 28.1 % (36.0-47.0); HEMOGLOBIN 9.7 g/dL (12.0-16.0); LYMPHOCYTES # (AUTO) 1.3 X10^3/uL (1.3-2.9); LYMPHOCYTES % (AUTO) 24.4 % (21.0-51.0); MEAN CORPUSCULAR HEMOGLOBIN 34.6 pg (27.0-34.0); MEAN CORPUSCULAR HGB CONC 34.4 g/dL (33.0-35.0); MEAN CORPUSCULAR VOLUME 100.6 fL (80.0-100.0); MEAN PLATELET VOLUME 7.8 fL (7.4-11.0); MONOCYTES # (AUTO) 0.3 x10^3/uL (0.3-0.8); MONOCYTES % (AUTO) 5.1 % (0.0-13.0); NEUTROPHILS # (AUTO) 3.4 x10^3/uL (2.2-4.8); NEUTROPHILS % (AUTO) 64.2 % (42.0-75.0); PLATELET COUNT 113 X10^3/uL (150.0-450.0); RED BLOOD COUNT 2.79 X10^6/uL (3.5-5.4); RED CELL DISTRIBUTION WIDTH 14.8 % (11.6-16.5); WHITE BLOOD COUNT 5.2 X10^3/uL (3.6-10.0)
[2024-05-12 15:25] LABS: ALBUMIN 2.9 g/dL (3.4-5.0); CALCIUM 8.2 mg/dL (8.5-10.1); CARBON DIOXIDE 30.1 mmol/L (21-32); COR CA(FOR HYPOALB) 9.1 mg/dL (8.5-10.1); CREATININE 6.71 mg/dL (0.55-1.02); MAGNESIUM 2.1 mg/dL (2.0-2.9); PHOSPHORUS 5.8 mg/dL (2.6-4.7); POTASSIUM 4.8 mmol/L (3.5-5.1); TOTAL PROTEIN 6.7 g/dL (6.4-8.2)
--- NOTE | 2024-05-12 15:31 | DR.H&P ---
H&P History & Physical for Day of: H&P Date: 05/12/24 Chief Complaint Chief Complaint: CCC, SOB, WEAKNESS History of Present Illness History of Present Illness: PT IS 73 WF, DIRECT ADMIT FROM DR GONZÁLES OFFICE WITH CO JAIRO SINCE LAST WEEK, INCREASED LOWER EXTREMITY EDEMA AND MORE SOB. PT STATES ONSET SATURDAY. PT HAS ESRF, ON DIALYSIS AND MISSED TREATMENT THIS AM DUE TO EXTREME WEAKNESS AND SOB. PT STATES SHE IS SUPPOSED TO HAVE A CATH AT [facility] NEXT WEEK. Past Medical History Past Medical History: Arthritis, CHF, Diabetes, Gout, Hypertension and Renal Disease Past Surgical History Surgical History: Appendectomy, Cholecystectomy and Hysterectomy Family History Family Medical History: Diabetes Mellitus, Cancer, Coronary Artery Disease and Hypertension Social History Does patient currently use any type of tobacco product: No Have you used tobacco products in the last 12 months: No Type of Tobacco Use: None Does any household member use tobacco: No Alcohol Use: Other Drug Use: None Medications Home Medications: Home Medications Medication Instructions Recorded Confirmed Type aspirin 81 mg tablet,delayed 81 mg PO BID 12/07/18 05/12/24 History release (Aspir-) gabapentin 100 mg capsule 100 mg PO DAILY 02/01/22 05/12/24 History linagliptin 5 mg tablet (Tradjenta) 5 mg PO QDAY 02/01/22 05/12/24 History carvedilol 6.25 mg tablet 6.25 mg PO BID 12/31/23 05/12/24 History metolazone 2.5 mg tablet 2.5 mg PO BID 02/20/24 05/12/24 History cetirizine 10 mg tablet 10 mg PO QDAY 05/12/24 05/12/24 History furosemide 40 mg tablet 40 mg PO QDAY PRN 05/12/24 05/12/24 History sevelamer carbonate 800 mg tablet 800 mg PO TID 05/12/24 05/12/24 History Allergies Allergies Allergy/AdvReac Type Severity Reaction Status Date / Time albuterol Allergy Verified 05/11/24 13:44 Penicillins Allergy Verified 05/11/24 13:44 Review of Systems Constitutional: Weakness Eyes: No Symptoms Reported ENT: Nose Discharge and Throat Pain Respiratory: Cough, Shortness of Breath, SOB with Excertion and Sputum Cardiovascular: No Symptoms Reported Gastrointestinal: Nausea Genitourinary: Retention Musculoskeletal: Arm Pain, Back Pain and Leg Pain Skin: No Symptoms Reported Neurological: Weakness Physical Exam Vital Signs: Vital Signs Temperature 97.9 F Temperature 97.9 F Pulse Rate [Left] 79 Pulse Rate 79 Respiratory Rate 18 Respiratory Rate 18 Blood Pressure [Left Arm] 164/67 Blood Pressure 148/70 O2 Sat by Pulse Oximetry 92 O2 Sat by Pulse Oximetry 92 Oriented: Normal Eyes: Normal Ear: Normal Nose: Normal Throat: Normal Respiratory: Wheezes Throughout Cardiovascular: Edema : Normal Auscultation: Bowel Sounds: Normal Palpation: Normal Tenderness: Diffuse Skin: Decreased Turgur Musculoskeletal: Back:Thoracic, Back:Lumbar and Motor Deficit Psychiatric: Anxiety Mood Description: Anxious Affect: Normal Speech Pattern: Clear and Appropriate Assessment/Plan (1) Acute bronchitis with COPD: Status: Acute Plan: ADMIT, RESP CONSULT CXR ON ADMISSION IV HYDRATION, IV ATBX SSI, STRICT I&OS CE AND EKG, BNP (2) GOMEZ (dyspnea on exertion): Status: Acute (3) Hypertension: Qualifiers: Hypertension type: essential hypertension Qualified Code(s): I10 - Essential (primary) hypertension Status: Acute (4) Diabetes: Status: Acute (5) Weakness: Status: Acute
[2024-05-12] MEDS: DUONEB 0.5 MG/3 MG (3 mL) NEB SCH (17:14)
[2024-05-12] MEDS: PULMICORT NEB TX 0.5 MG NEB SCH (17:15)
[2024-05-12] MEDS: COREG TAB 6.25 MG PO SCH (18:20)
[2024-05-12 18:41] LABS: BILIRUBIN,URINE NEGATIVE (NEGATIVE); BLOOD/HEMOGLOBIN,URINE 1+ (NEGATIVE); GLUCOSE, URINE 1+ (NEGATIVE); KETONES,URINE NEGATIVE (NEGATIVE); LEUKOCYTE ESTERASE ,URINE NEGATIVE (NEGATIVE); NITRITES,URINE NEGATIVE (NEGATIVE); PROTEIN,URINE 3+ (NEGATIVE); UROBILINOGEN,URINE NORMAL (NORMAL)
[2024-05-12 18:52] LABS: APPEARANCE,URINE CLEAR (CLEAR); COLOR,URINE STRAW (YELLOW)
[2024-05-12 18:53] LABS: BACTERIA,URINE NEGATIVE /HPF (NEGATIVE); SQUAMOUS EPITHELIAL CELL,UR FEW /HPF (NEGATIVE)
[2024-05-12] MEDS: COREG TAB 6.25 MG ONE (18:59)
[2024-05-12] MEDS: SNACK - Diabetic Appropriate PO SCH (20:12)
[2024-05-12] MEDS: HEPARIN SODIUM INJ 5000 UNITS SC SCH (21:08)
[2024-05-12] MEDS: NovoLIN R (or HumuLIN R) SUBCUT PRN (21:09)
[2024-05-13 06:33] LABS: BASOPHILS % (AUTO) 1.1 % (0.2-1.0); EOSINOPHILS % (AUTO) 0.1 % (0.9-2.9); HEMATOCRIT 33.7 % (36.0-47.0); HEMOGLOBIN 11.6 g/dL (12.0-16.0); LYMPHOCYTES # (AUTO) 0.8 X10^3/uL (1.3-2.9); LYMPHOCYTES % (AUTO) 19.8 % (21.0-51.0); MEAN CORPUSCULAR HEMOGLOBIN 34.7 pg (27.0-34.0); MEAN CORPUSCULAR HGB CONC 34.5 g/dL (33.0-35.0); MEAN CORPUSCULAR VOLUME 100.4 fL (80.0-100.0); MEAN PLATELET VOLUME 7.9 fL (7.4-11.0); MONOCYTES # (AUTO) 0.1 x10^3/uL (0.3-0.8); MONOCYTES % (AUTO) 1.3 % (0.0-13.0); NEUTROPHILS # (AUTO) 3.2 x10^3/uL (2.2-4.8); NEUTROPHILS % (AUTO) 77.7 % (42.0-75.0); PLATELET COUNT 123 X10^3/uL (150.0-450.0); RED BLOOD COUNT 3.36 X10^6/uL (3.5-5.4); RED CELL DISTRIBUTION WIDTH 14.5 % (11.6-16.5); WHITE BLOOD COUNT 4.1 X10^3/uL (3.6-10.0)
[2024-05-13 06:47] LABS: ALBUMIN 3.1 g/dL (3.4-5.0); CALCIUM 8.4 mg/dL (8.5-10.1); CARBON DIOXIDE 25.8 mmol/L (21-32); COR CA(FOR HYPOALB) 9.1 mg/dL (8.5-10.1); CREATININE 7.34 mg/dL (0.55-1.02); POTASSIUM 5.3 mmol/L (3.5-5.1); TOTAL PROTEIN 7.4 g/dL (6.4-8.2)
[2024-05-13] MEDS: TRADJENTA PO SCH (08:53)
[2024-05-13] MEDS: NEURONTIN CAP 100 MG PO SCH (08:53)
[2024-05-13 18:04] LABS: CALCIUM 8.3 mg/dL (8.5-10.1); CARBON DIOXIDE 24.7 mmol/L (21-32); COR CA(FOR HYPOALB) 9.1 mg/dL (8.5-10.1); CREATININE 7.88 mg/dL (0.55-1.02); POTASSIUM 4.9 mmol/L (3.5-5.1); TOTAL PROTEIN 7.1 g/dL (6.4-8.2)
[2024-05-14 04:20] VITALS: BP 157/70; PULSE 68; RESP 18; TEMP 97.4; O2SAT 97
--- NOTE | 2024-05-14 07:35 | RAD ---
EXAM: Portable chest HISTORY: Shortness of breath COMPARISON: 05/12/2024 FINDINGS: Heart remains enlarged. No congestive heart failure is identified. Gail are normal. Aorta is hernandez cified. Lungs are free of acute infiltrates. No pleural effusions identified. There is a vascular stent overlying the right lung apex. Bony thorax is unremarkable. IMPRESSION: Cardiomegaly without congestive heart failure No acute infiltrates THIS IS AN ELECTRONICALLY VERIFIED FINAL REPORT 05/14/2024 7:31 AM - Electronically signed by Paxton Hare MD
== END 2024-05-14 07:30 | disposition home health service (06) ==
LOC: MED/SURG
PROVIDERS: ADMIT Internal Medicine; ATTEND Internal Medicine
DX: I25.10 Atherosclerotic heart disease of native coronary artery without angina pectoris; E11.65 Type 2 diabetes mellitus with hyperglycemia; R53.1 Weakness; R60.0 Localized edema; J44.0 Chronic obstructive pulmonary disease with (acute) lower respiratory infection; R06.02 Shortness of breath; N17.8 Other acute kidney failure; I13.2 Hypertensive heart and chronic kidney disease with heart failure and with stage 5 chronic kidney disease, or end stage renal disease; J20.8 Acute bronchitis due to other specified organisms; Z99.2 Dependence on renal dialysis; Z68.34 Body mass index [BMI] 34.0-34.9, adult; E66.01 Morbid (severe) obesity due to excess calories; N18.6 End stage renal disease; I50.9 Heart failure, unspecified

== ENCOUNTER 2024-08-31 10:22 | Observation (INO) ==
[2024-08-31] MEDS ORDERED: ZOFRAN INJ 4 MG VIAL IVP PRN (11:49)
--- NOTE | 2024-08-31 12:04 | DR.H&P ---
H&P History & Physical for Day of: H&P Date: 08/31/24 Chief Complaint Chief Complaint: SEVERE PAIN TO RIGHT HAND WRIST AFTER FALL History of Present Illness History of Present Illness: PT IS 74 WF, DIRECT ADMIT FROM DR GONZÁLES OFFICE WITH CO SEVERE PAIN TO RIGHT HAND AFTER A FALL LAST SATURDAY. PT STATES BLISTER FORMATION TO BACK OF RIGHT HAND WITH DIFFUSE SWELLING. PT CANNOT TOLERATE LIGHT TOUCH TO HAND DUE TO TENDERNESS. PT HAS XRAY LAST WEEK WITH NO ACUTE FRACTURE. PT HAS PMH OF DM, CRF, HTN, CAD AND OA. PT ADMITTED FOR IV ATBX, I&D AND PAIN CONTROL Past Medical History Past Medical History: Arthritis, CHF, Diabetes, Gout, Hypertension and Renal Disease Past Surgical History Surgical History: Appendectomy, Cholecystectomy and Hysterectomy Family History Family Medical History: Diabetes Mellitus, Cancer, Coronary Artery Disease and Hypertension Medications Home Medications: Home Medications Medication Instructions Recorded Confirmed Type gabapentin 100 mg capsule 100 mg PO DAILY 02/01/22 History linagliptin 5 mg tablet (Tradjenta) 5 mg PO QDAY 02/0106/15/24 History carvedilol 6.25 mg tablet 6.25 mg PO BID 12/31/2305/20 History metolazone 2.5 mg tablet 2.5 mg PO BID 02/20/2406/15 History cetirizine 10 mg tablet 10 mg PO QDAY 05/12/2406/15 History furosemide 40 mg tablet 40 mg PO QDAY PRN 05/12/24 0 06/15/24 History sevelamer carbonate 800 mg tablet 800 mg PO TID 06/15/24 History aspirin 81 mg tablet,delayed 81 mg PO QDAY 06/15/24 History release (Adult Aspirin Regimen) bempedoic acid 180 mg-ezetimibe 10 1 tab PO QDAY 06/1506/15/24 History mg tablet (Nexlizet) clopidogrel 75 mg tablet 75 mg PO QDAY 06/15/2406/15 History rosuvastatin 40 mg tablet 40 mg PO QDAY 06/15/2406/15 History Allergies Allergies Allergy/AdvReac Type Severity Reaction Status Date / Time albuterol Allergy Verified 06/15/24 11:28 Penicillins Allergy Verified 06/15/24 11:28 Review of Systems Constitutional: Weakness Eyes: No Symptoms Reported ENT: No Symptoms Reported Respiratory: No Symptoms Reported Cardiovascular: Edema Gastrointestinal: Nausea Genitourinary: No Symptoms Reported Musculoskeletal: Arm Pain and Hand Pain Skin: Bruising and Wound Neurological: No Symptoms Reported Oriented: Normal Eyes: Normal Ear: Normal Nose: Normal Throat: Normal Respiratory: RLL Diminished and LLL Diminished Cardiovascular: Normal Auscultation: Bowel Sounds: Normal Tenderness: Normal Skin: Tender, Wound and Bruising (LARGE HEMATOMA TO LEFT UPPER ARM; DIFFUSE BRUISING TO RIGHT HAND AND WRIST WITH LARGE INTACT BLISTER TO DORSAL SIDE) Musculoskeletal: Arm and Hand Psychiatric: Anxiety Mood Description: Anxious Affect: Normal Speech Pattern: Clear and Appropriate Assessment/Plan (1) Cellulitis of right hand: Status: Acute Plan: IV ATBX, ADMISSION LABS CT RIGHT UPPER EXTREMITY, ELEVATE, PAIN CONTROL CONSULT DR GRESHAM FOR I&D ABSCESS FORMATION (2) Injury of right hand: Status: Acute (3) ESRD (end stage renal disease): Status: Acute (4) Hypertension: Qualifiers: Hypertension type: essential hypertension Qualified Code(s): I10 - Essential (primary) hypertension Status: Acute
[2024-08-31 12:21] LABS: MEAN PLATELET VOLUME 7.4 fL (7.4-11.0); RED CELL DISTRIBUTION WIDTH 14.8 % (11.6-16.5)
[2024-08-31 12:25] LABS: ERYTHROCYTE SEDIMENTATION RATE 54 MM/HOUR (0-20)
[2024-08-31 12:34] LABS: COR CA(FOR HYPOALB) 8.8 mg/dL (8.5-10.1); CREATININE 7.54 mg/dL (0.55-1.02); eGFR NON BLACK RACES 6 (>60)
[2024-08-31 12:51] VITALS: BMI 43.4
[2024-08-31] MEDS: NS 500 ML IV 500 ML IV ONE (13:11)
[2024-08-31] MEDS: ZYVOX 600MG IV 600 MG/300 ML BAG IV SCH (13:11)
[2024-08-31] MEDS: PERCOCET TAB 5/325 MG PO PRN (14:31)
[2024-08-31] MEDS: COREG TAB 6.25 MG PO SCH (20:29)
[2024-09-01] MEDS ORDERED: DILAUDID INJ ONE (08:10)
[2024-09-01] MEDS ORDERED: HYDROGEN PEROXIDE 3% ONE (08:17)
[2024-09-01] MEDS: DILAUDID INJ IVP ONE (08:18)
[2024-09-01 08:19] VITALS: RESP 20
[2024-09-01] MEDS: PLAVIX PO SCH (08:33)
--- NOTE | 2024-09-01 09:18 | RAD ---
EXAM: HUMERUS, RIGHT two-view HISTORY: FALL; COMPARISON: None FINDINGS: No acute fracture or dislocation. No acute soft tissue abnormality. IMPRESSION: No acute fracture or dislocation. THIS IS AN ELECTRONICALLY VERIFIED FINAL REPORT 09/01/2024 9:15 AM - Electronically signed by Paxton Hare MD
[2024-09-01] MEDS: TRADJENTA PO SCH (09:39)
[2024-09-01 09:41] LABS: MEAN PLATELET VOLUME 8.0 fL (7.4-11.0); RED CELL DISTRIBUTION WIDTH 14.6 % (11.6-16.5)
[2024-09-01 09:57] LABS: COR CA(FOR HYPOALB) 8.7 mg/dL (8.5-10.1); COR NA(FOR HYPERGLY) 139.0 mmol/L (136-145); CREATININE 8.13 mg/dL (0.55-1.02); eGFR NON BLACK RACES 5.0 (>60)
[2024-09-01 10:36] VITALS: BP 125/61; PULSE 64; TEMP 97.9; O2SAT 93
[2024-09-01] MEDS ORDERED: ZOFRAN ODT ONE (10:44)
[2024-09-01] MEDS: ZOFRAN ODT PO ONE (10:45)
--- NOTE | 2024-09-01 11:34 | RAD ---
EXAM: Left humerus two views HISTORY: Arm pain COMPARISON: None FINDINGS: Image quality is suboptimal with incomplete penetration/visualization of the upper humerus and shoulder. What is seen is normal. Osteopenia consistent with age. No fracture or bone destruction or displacement identified. IMPRESSION: No acute findings left humerus. See above. THIS IS AN ELECTRONICALLY VERIFIED FINAL REPORT 09/01/2024 11:31 AM - Electronically signed by Harry Zamudio MD
--- NOTE | 2024-09-01 13:24 | CT ---
EXAM: UPPER EXT W/O CON right HISTORY: RT HAND HEMATOMA; COMPARISON: None TECHNIQUE: CT of the right hand obtained without IV contrast. Evaluation of the soft tissues is limited due to lack of IV contrast. dose reduction techniques including Automated Exposure Control (AEC) and adjustment of mA and kV were utilized. FINDINGS: No acute fracture or dislocation. Edema in the dorsal hand. IMPRESSION: No acute fracture or dislocation. THIS IS AN ELECTRONICALLY VERIFIED FINAL REPORT 09/01/2024 1:20 PM - Electronically signed by Paxton Hare MD
== END 2024-09-01 10:50 | disposition home health service (06) ==
LOC: MED/SURG
PROVIDERS: ADMIT Internal Medicine; ATTEND Internal Medicine
DX: Y92.9 Unspecified place or not applicable; E11.22 Type 2 diabetes mellitus with diabetic chronic kidney disease; M79.622 Pain in left upper arm; R26.89 Other abnormalities of gait and mobility; Z16.29 Resistance to other single specified antibiotic; I25.10 Atherosclerotic heart disease of native coronary artery without angina pectoris; B95.61 Methicillin susceptible Staphylococcus aureus infection as the cause of diseases classified elsewhere; M19.90 Unspecified osteoarthritis, unspecified site; S60.221A Contusion of right hand, initial encounter; R70.0 Elevated erythrocyte sedimentation rate; L03.113 Cellulitis of right upper limb; E11.65 Type 2 diabetes mellitus with hyperglycemia; Z99.2 Dependence on renal dialysis; W18.39XA Other fall on same level, initial encounter; I12.0 Hypertensive chronic kidney disease with stage 5 chronic kidney disease or end stage renal disease; Z86.14 Personal history of Methicillin resistant Staphylococcus aureus infection; S61.411A Laceration without foreign body of right hand, initial encounter; N18.6 End stage renal disease; R79.82 Elevated C-reactive protein (CRP)

== ENCOUNTER 2024-09-23 12:25 | Observation (INO) ==
[2024-09-23] MEDS ORDERED: XOPENEX 1.25 MG/3 ML NEBULE NEB PRN (15:22)
[2024-09-23 15:25] LABS: MEAN PLATELET VOLUME 10.4 fL (7.4-11.0); RED CELL DISTRIBUTION WIDTH 14.2 % (11.6-16.5); RETICULOCYTE % 0.81 % (0.8-2.2)
[2024-09-23 15:37] LABS: COR CA(FOR HYPOALB) 9.7 mg/dL (8.5-10.1); COR NA(FOR HYPERGLY) 141.0 mmol/L (136-145); CREATININE 5.85 mg/dL (0.55-1.02); eGFR NON BLACK RACES 7.0 (>60)
--- NOTE | 2024-09-23 15:38 | DR.H&P ---
H&P History & Physical for Day of: H&P Date: 09/23/24 Chief Complaint Chief Complaint: SOB, FEVER, WEAKNESS AND SWELLING History of Present Illness History of Present Illness: PT IS 74WF, DIRECT ADMIT FROM [facility] WITH SOB, DIFFUSE SWELLING AND WEAKNESS. PT HAD HBG 7.3, PLATELET 41 ON OP LABS AND CXR WITH CHF EXACERBATION. PT HAS ESRF ON DIAYLSIS, DM, CAD, CHF AND COPD. PT ADMITTED FOR EVALUATION AND TREATMENT OF ACUTE ILLNESS. Past Medical History Past Medical History: Arthritis, CHF, Diabetes, Gout, Hypertension and Renal Disease Past Surgical History Surgical History: Appendectomy, Cholecystectomy and Hysterectomy Family History Family Medical History: Diabetes Mellitus, Cancer, Coronary Artery Disease and Hypertension Medications Home Medications: Home Medications Medication Instructions Recorded Confirmed Type gabapentin 100 mg capsule 100 mg PO QHS 02/01/2209/08 History carvedilol 6.25 mg tablet 6.25 mg PO BID 12/31/2308/19 History metolazone 2.5 mg tablet 2.5 mg PO BID 02/20/2409/08 History cetirizine 10 mg tablet 10 mg PO QDAY 05/12/2409/08 History furosemide 40 mg tablet 40 mg PO QDAY 05/12/2409/08 History aspirin 81 mg tablet,delayed 81 mg PO QDAY 06/15/24 History release (Adult Low Dose Aspirin) clopidogrel 75 mg tablet 37.5 mg PO QDAY 06/15/24 History rosuvastatin 40 mg tablet 10 mg PO QHS 06/15/24 History bempedoic acid 180 mg-ezetimibe 10 1 tab PO QDAY 08/3109/08/24 History mg tablet (Nexlizet) cefdinir 300 mg capsule 300 mg PO BID 09/08/2409/08 History insulin regular human 100 unit/mL See Rx Instructions .Route .COMPLEX 09/08/24 09/08/24 History injection solution (Novolin R Regular U-100 Insulin) rifaximin 550 mg tablet (Xifaxan) 550 mg PO BID 09/08/24 History sevelamer carbonate 800 mg tablet 800 mg PO TID 09/08/24 History prednisone 5 mg tablet mg PO 09/10/24 09/10/24 Hist ory Allergies Allergies Allergy/AdvReac Type Severity Reaction Status Date / Time albuterol Allergy Verified 09/08/24 14:01 Penicillins Allergy Verified 09/08/24 14:01 Labs 09/23/24 15:10 09/23/24 15:10 Review of Systems Constitutional: No Symptoms Reported Eyes: No Symptoms Reported ENT: No Symptoms Reported Respiratory: Shortness of Breath Cardiovascular: Edema Gastrointestinal: Nausea Genitourinary: Dysuria Musculoskeletal: Back Pain and Leg Pain Skin: No Symptoms Reported Neurological: Weakness Oriented: Normal Eyes: Normal Ear: Normal Nose: Normal Throat: Dry Respiratory: Diminished Throughout Cardiovascular: Edema Auscultation: Bowel Sounds: Normal Palpation: Other (DIFFUSE DISTENTION) Tenderness: Diffuse Skin: Decreased Turgur Musculoskeletal: Back:Lumbar Psychiatric: Anxiety Mood Description: Depressed Speech Pattern: Clear and Appropriate Assessment/Plan (1) CHF (congestive heart failure): Status: Acute Plan: ADMIT, STRICT I&OS CARDIAC MONITORING REPEAT CXR ON ADMISSION POTASSIUM REPLACEMENT, ANEMIA PANEL OCCULT BLOOD, TRANFUSE 1 UNIT PER PROTOCOL (2) CAD (coronary artery disease): Status: Acute (3) ESRD (end stage renal disease): Status: Acute (4) Hypertension: Qualifiers: Hypertension type: essential hypertension Qualified Code(s): I10 - Essential (primary) hypertension Status: Acute (5) SOB (shortness of breath): Status: Acute (6) Anemia: Status: Acute
[2024-09-23 15:40] VITALS: BMI 44.1
--- NOTE | 2024-09-23 15:40 | RAD ---
EXAM: CHEST, 1 VIEW HISTORY: FEVER, SOB; DM, GOUT, HTN, STAGE 4 RENAL DISEASE SX: APPENDECTOMY, HYSTERECTOMY, ORTHO, CHOLECYSTECTOMY COMPARISON: Prior study or studies were utilized for comparison during interpretation with the most relevant dated 09/21/2024 TECHNIQUE: CHEST, 1 VIEW FINDINGS: Chest: Lines and tubes: None Mediastinum: Borderline cardiomegaly. Pulmonary vessels: No pulmonary vascular congestion. Lung raymundo: No suspicious airspace opacity. Pleura: No effusion. No pneumothorax. Bones and soft tissues: No acute osseous or soft tissue abnormality. IMPRESSION: 1. No acute cardiopulmonary abnormality THIS IS AN ELECTRONICALLY VERIFIED FINAL REPORT 09/23/2024 3:36 PM - Electronically signed by Alan Light MD
[2024-09-23] MEDS: LASIX IVP ONE (16:55)
[2024-09-23] MEDS: PROTONIX INJ 40 MG VIAL IVP SCH (16:55)
[2024-09-23] MEDS: K-DUR TAB 20 MEQ PO SCH (16:55)
[2024-09-23] MEDS: BUTT CREAM (COMPOUND) TOP PRN (16:55)
[2024-09-23 20:35] VITALS: O2SAT 100
[2024-09-23] MEDS: CRESTOR TAB 10 MG PO SCH (21:39)
[2024-09-23] MEDS: K-DUR TAB 20 MEQ PO PRN (21:39)
[2024-09-23] MEDS: LASIX IVP PRN (21:40)
[2024-09-23] MEDS: COREG TAB 6.25 MG PO SCH (21:54)
[2024-09-23] MEDS: TYLENOL 325 MG TAB PO PRN (21:54)
[2024-09-23] MEDS: NS 250 ML IV 250 ML IV ONE (23:14)
[2024-09-24 05:07] LABS: MEAN PLATELET VOLUME 9.5 fL (7.4-11.0); RED CELL DISTRIBUTION WIDTH 17.3 % (11.6-16.5)
[2024-09-24 05:15] LABS: COR CA(FOR HYPOALB) 9.5 mg/dL (8.5-10.1); COR NA(FOR HYPERGLY) 139.0 mmol/L (136-145); CREATININE 6.33 mg/dL (0.55-1.02); eGFR NON BLACK RACES 7.0 (>60)
[2024-09-24] MEDS: NS 250 ML IV 250 ML IV ONE (07:23)
[2024-09-24 08:03] VITALS: BP 132/63; PULSE 61; RESP 18; TEMP 97.6
[2024-09-24] MEDS: ROCEPHIN VIAL 1 GRAM 1 G in NS 100 ML IV 100 ML IV SCH (08:32)
[2024-09-24] MEDS ORDERED: PHARMACY CONSULT XX SCH (09:00)
--- NOTE | 2024-09-25 07:44 | RAD ---
EXAM: Portable AP chest HISTORY: Fever COPD COMPARISON: 09/23/2024 FINDINGS: Mild stable cardiac enlargement. The left chest is clear. There is a new triangular parenchymal density in the medial right lower lung without evidence for hilar enlargement or pleural effusion. IMPRESSION: Findings suspect for developing pneumonia or atelectasis in the right lower lobe. THIS IS AN ELECTRONICALLY VERIFIED FINAL REPORT 09/25/2024 7:41 AM - Electronically signed by Harry Zamudio MD
== END 2024-09-24 10:20 | disposition short-term general hospital (02) ==
LOC: MED/SURG
PROVIDERS: ADMIT Internal Medicine; ATTEND Internal Medicine
DX: J44.9 Chronic obstructive pulmonary disease, unspecified; D69.6 Thrombocytopenia, unspecified; N18.6 End stage renal disease; E83.51 Hypocalcemia; E11.65 Type 2 diabetes mellitus with hyperglycemia; S61.411A Laceration without foreign body of right hand, initial encounter; R50.9 Fever, unspecified; R53.1 Weakness; I50.89 Other heart failure; K21.9 Gastro-esophageal reflux disease without esophagitis; I25.10 Atherosclerotic heart disease of native coronary artery without angina pectoris; R94.4 Abnormal results of kidney function studies; Z99.2 Dependence on renal dialysis; R06.02 Shortness of breath; Z79.4 Long term (current) use of insulin; Y92.9 Unspecified place or not applicable; D64.89 Other specified anemias; I13.0 Hypertensive heart and chronic kidney disease with heart failure and stage 1 through stage 4 chronic kidney disease, or unspecified chronic kidney disease; R79.89 Other specified abnormal findings of blood chemistry; X58.XXXA Exposure to other specified factors, initial encounter